=== PATIENT | male | born 1990 | race Caucasian/White ===

== ENCOUNTER 2023-07-11 18:40 | Emergency (ER) | payer OTHER, SELFPAY ==
[2023-07-11 18:45] VITALS: BP 138/89; PULSE 108; RESP 20; TEMP 37; O2SAT 97; BMI 39.3
--- NOTE | 2023-07-11 19:02 | XR_ITS ---
The [address] [address] Patient Name: RENÉ BEARD MRN: [id number] date: 1990 Sex: M Assigned Patient Location: ER Current Patient Location: ED.MAIN Accession/Order Number: [id number] Exam Date: 07/11/2023 19:15 Report Date: 07/11/2023 20:00 At the request of: JOHN BLANK Procedure: XR shoulder RT min 2V IMAGES REVIEWED: XR shoulder RT min 2V, XR lumbar spine min 4V COMPARISON: 08/05/2020 CT abdomen pelvis. CLINICAL INDICATION: pain FINDINGS/IMPRESSION: No evidence of acute osseous abnormality of the right shoulder or lumbar spine. Chronic anterior wedging of T12 and to a lesser extent L1 vertebral bodies again seen. No pars defects or spondylolisthesis. Electronically authenticated by: DEONTE CHAVARRIA Date: 07/11/2023 20:00
--- NOTE | 2023-07-11 19:02 | XR_ITS ---
The [address] [address] Patient Name: RENÉ BEARD MRN: [id number] date: 1990 Sex: M Assigned Patient Location: ER Current Patient Location: ED.MAIN Accession/Order Number: [id number] Exam Date: 07/11/2023 19:15 Report Date: 07/11/2023 20:00 At the request of: JOHN BLANK Procedure: XR lumbar spine min 4V IMAGES REVIEWED: XR shoulder RT min 2V, XR lumbar spine min 4V COMPARISON: 08/05/2020 CT abdomen pelvis. CLINICAL INDICATION: pain FINDINGS/IMPRESSION: No evidence of acute osseous abnormality of the right shoulder or lumbar spine. Chronic anterior wedging of T12 and to a lesser extent L1 vertebral bodies again seen. No pars defects or spondylolisthesis. Electronically authenticated by: DEONTE CHAVARRIA Date: 07/11/2023 20:00
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
--- NOTE | 2023-07-11 19:20 | PC.NURSE ---
Pt reports lower back and coccyx pain from mechanical fall at work this evening. Denies hitting head or LOC. Pt also reports right shoulder pain from fall, pain with ROM.
[2023-07-11 20:09] VITALS: BP 140/88; PULSE 78; RESP 16; O2SAT 98
== END 2023-07-11 20:10 | disposition home or self-care (01) ==
PROVIDERS: Emergency Provider Emergency Medicine
DX: S40.011A Contusion of right shoulder, initial encounter (principal); S39.012A Strain of muscle, fascia and tendon of lower back, initial encounter; W19.XXXA Unspecified fall, initial encounter
CPT/HCPCS: 72110; 73030; 99284

== ENCOUNTER 2023-07-28 11:53 | Outpatient (OUT) | payer SELFPAY ==
--- OUTSIDE RECORDS SUMMARY | 2023-07-28 11:57 | XMS_ITS | CCD ---
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 #### C BC, CMP #### [address] Erythrocyte distribution width (RBC) [Ratio] 13.5 % Normal 12.0-14.8 [facility] Comment on above: Order Comment: DATE CHANGE PER ELSY RN Performed By: #### C BC, CMP #### [address] Hematocrit (Bld) [Volume fraction] 46.1 % Normal 38.8-50.0 [facility] Comment on above: Order Comment: DATE CHANGE PER ELSY RN Performed By: #### C BC, CMP #### [place] [address] [place] Hemoglobin (Bld) [Mass/Vol] 15.4 g/dL Normal 13.0-17.0 [facility] Comment on above: Order Comment: DATE CHANGE PER ELSY RN Performed By: #### C BC, CMP #### [place] [address] [place] Lymphocytes (Bld) [#/Vol] 2.8 10*3/uL Normal 1.00-4.8 [facility] Comment on above: Order Comment: DATE CHANGE PER ELSY RN Performed By: #### C BC, CMP #### [facility] [address] Lymphocytes/100 WBC (Bld) 39.6 % Normal . [facility] Comment on above: Order Comment: DATE CHANGE PER ELSY RN Performed By: #### C BC, CMP #### [facility] [address] MCH (RBC) [Entitic mass] 31.1 pg Normal 27.5-35.2 [facility] Comment on above: Order Comment: DATE CHANGE PER ELSY RN Performed By: #### C BC, CMP #### [address] MCV (RBC) [Entitic vol] 92.9 fL Normal 83.5-101 [facility] Comment on above: Order Comment: DATE CHANGE PER ELSY RN Performed By: #### C BC, CMP #### [address] Mean Corpuscular HGB Conc 33.4 g/dL Normal 32.5-35.6 [facility] Comment on above: Order Comment: DATE CHANGE PER ELSY RN Performed By: #### C BC, CMP #### [address] Monocytes (Bld) [#/Vol] 0.6 10*3/uL Normal 0.0-0.8 [facility] Comment on above: Order Comment: DATE CHANGE PER ELSY RN Performed By: #### C BC, CMP #### [place] [address] [place] Monocytes/100 WBC (Bld) 8.9 % Normal . [facility] Comment on above: Order Comment: DATE CHANGE PER ELSY RN Performed By: #### C BC, CMP #### [facility] [address] [place] [address] [place] Neutrophils (Bld) [#/Vol] 3.6 10*3/uL Normal 1.8-7.7 [facility] Comment on above: Order Comment: DATE CHANGE PER ELSY RN Performed By: #### C BC, CMP #### [facility] [address] Neutrophils/100 WBC (Bld) 50.1 % Normal . [facility] Comment on above: Order Comment: DATE CHANGE PER ELSY RN Performed By: #### C BC, CMP #### [facility] [address] Nucleated RBC/100 WBC (Bld) [Ratio] 0.0 % Normal 0-0.5 [facility] Comment on above: Order Comment: DATE CHANGE PER ELSY RN Performed By: #### C BC, CMP #### [facility] [address] Platelet mean volume (Bld) [Entitic vol] 7.4 fL Normal 6.6-10.1 [facility] Comment on above: Order Comment: DATE CHANGE PER ELSY RN Performed By: #### C BC, CMP #### [facility] [address] Platelets (Bld) [#/Vol] 252 10*3/uL Normal 150-450 [facility] Comment on above: Order Comment: DATE CHANGE PER ELSY RN Performed By: #### C BC, CMP #### [facility] [address] RBC (Bld) [#/Vol] 4.96 10*6/uL Normal 3.90-5.60 [facility] Comment on above: Order Comment: DATE CHANGE PER ELSY RN Performed By: #### C BC, CMP #### [facility] [address] [place] [address] [place] WBC (Bld) [#/Vol] 7.1 10*3/uL Normal 4.5-11.0 [facility] Comment on above: Order Comment: DATE CHANGE PER ELSY RN Performed By: #### C BC, CMP #### [facility] [address] Comprehensive Metabolic Pane mike 09-18-2020 Albumin [Mass/Vol] 3.6 g/dL Normal 3.2-5.5 [facility] Comment on above: Order Comment: DATE CHANGE PER ELSY RN Performed By: #### C BC, CMP #### [facility] [address] [place] [id number] [facility] Albumin/Globulin [Mass ratio] 1.2 {ratio} Normal [facility] Comment on above: Order Comment: DATE CHANGE PER ELSY RN Performed By: #### C BC, CMP #### [facility] [address] [place] [id number] [facility] ALP [Catalytic activity/Vol] 64 U/L Normal 32-92 [facility] Comment on above: Order Comment: DATE CHANGE PER ELSY RN Performed By: #### C BC, CMP #### [facility] [address] [place] [id number] [facility] ALT [Catalytic activity/Vol] 18 U/L Normal 10-60 [facility] Comment on above: Order Comment: DATE CHANGE PER ELSY RN Performed By: #### C BC, CMP #### [facility] [address] [place] [id number] [place] AST [Catalytic activity/Vol] 16 U/L Normal 10-42 [facility] Comment on above: Order Comment: DATE CHANGE PER ELSY RN Performed By: #### C BC, CMP #### [facility] [address] [place] [id number] [place] Bilirubin [Mass/Vol] 1.0 mg/dL Normal 0.3-1.2 [facility] Comment on above: Order Comment: DATE CHANGE PER ELSY RN Performed By: #### C BC, CMP #### [facility] [address] [place] [address] [place] Calcium [Mass/Vol] 9.5 mg/dL Normal 8.2-10.2 [facility] Comment on above: Order Comment: DATE CHANGE PER ELSY RN Performed By: #### C BC, CMP #### [facility] [address] [place] [address] [place] Chloride [Moles/Vol] 100 mmol/L Normal 95-114 [facility] Comment on above: Order Comment: DATE CHANGE PER ELSY RN Performed By: #### C BC, CMP #### [facility] [address] CO2 [Moles/Vol] 26.3 mmol/L Normal 22.0-30.0 [facility] Comment on above: Order Comment: DATE CHANGE PER ELSY RN Performed By: #### C BC, CMP #### [facility] [address] Creatinine [Mass/Vol] 1.31 mg/dL High 0.64-1.27 [facility] Comment on above: Order Comment: DATE CHANGE PER ELSY RN Performed By: #### C BC, CMP #### [address] Creatinine Clr Calc Pharmacy 108.73 [facility] Comment on above: Order Comment: DATE CHANGE PER ELSY RN Result Comment: PERF ORMED BY: [place] [address] PATHOLOGIST CYLINDER PRESS OPERATOR HELPER ANNE VEGA M.D. Performed By: #### C BC, CMP #### [address] Estimated GFR ( Marialuisa > 60 [facility] Comment on above: Order Comment: DATE CHANGE PER ELSY RN Result Comment: GFR estimated reference range: According to KDOQI guidelines, <60 ml/min/1.73m2 is sufficient to diagnose a patient with chronic kidney disease. Performed By: #### C BC, CMP #### [address] Estimated GFR (Non- Am > 60 [facility] Comment on above: Order Comment: DATE CHANGE PER ELSY RN Performed By: #### C BC, CMP #### [address] Globulin (S) [Mass/Vol] 2.9 g/dL [facility] Comment on above: Order Comment: DATE CHANGE PER ELSY RN Performed By: #### C BC, CMP #### [address] Glucose [Mass/Vol] 90 mg/dL Normal 70-100 [facility] Comment on above: Order Comment: DATE CHANGE PER ELSY RN Result Comment: [place] Glucose Reference Range is dependent on time and content of last meal. Glucose of more than 200 mg/dL in a nonstressed, ambulatory subject supports the diagnosis of Diabetes Mellitus. ADA recommended reference range Performed By: #### C BC, CMP #### [facility] [address] [place] [id number] [facility] Potassium [Moles/Vol] 4.5 mmol/L Normal 3.5-5.1 [facility] Comment on above: Order Comment: DATE CHANGE PER ELSY RN Performed By: #### C BC, CMP #### [facility] [address] Protein [Mass/Vol] 6.5 g/dL Normal 6.1-7.9 [facility] Comment on above: Order Comment: DATE CHANGE PER ELSY RN Performed By: #### C BC, CMP #### [facility] [address] Sodium [Moles/Vol] 137 mmol/L Normal 136-146 [facility] Comment on above: Order Comment: DATE CHANGE PER ELSY RN Performed By: #### C BC, CMP #### [address] Urea nitrogen [Mass/Vol] 19 mg/dL Normal 9-23 [facility] Comment on above: Order Comment: DATE CHANGE PER ELSY RN Performed By: #### C BC, CMP #### [facility] [address] [place] [id number] [facility] Lipid Panelon 09-18-2020 Cholesterol [Mass/Vol] 179 mg/dL Normal 140-200 [facility] Comment on above: Order Comment: rn wi ll call when ready to be drawn change date to 09/18 per RN Result Comment: Chol less than 200 mg/dl low risk Chol 201-239 mg/dl borderline risk Chol 240 mg/dl and greater high risk Performed By: #### V [id number], TSH3 wRFLX, LIPID #### [facility] [address] Cholesterol in HDL [Mass/Vol] 30 mg/dL Normal 29-71 [facility] Comment on above: Order Comment: rn wi ll call when ready to be drawn change date to 09/18 per RN Result Comment: HDL CHOL ATP-III CLASSIFICATION Cardiovascular Risk HDL > or equal to 60 mg/dL LOW HDL < 40 mg/dL HIGH Performed By: #### V [id number], TSH3 wRFLX, LIPID #### [facility] [address] Cholesterol.total/Ch olesterol in HDL [Mass ratio] 6.0 {ratio} Normal <5.0 [facility] Comment on above: Order Comment: rn wi ll call when ready to be drawn change date to 09/18 per RN Performed By: #### V [id number], TSH3 wRFLX, LIPID #### [address] LDL Cholesterol,Calculat ed 127 mg/dL High 0-100 [facility] Comment on above: Order Comment: rn wi ll call when ready to be drawn change date to 09/18 per RN Result Comment: LDL ATP III CLASSIFICATION LDL less than 100 mg/dL Optimal LDL 100-129 mg/dL Near or above optimal LDL 130-159 mg/dL Borderline high LDL 160-189 mg/dL High LDL greater than 189 mg/dL Very high Performed By: #### V [id number], TSH3 wRFLX, LIPID #### [facility] [address] [place], [place] [id number] [place] Triglyceride w/Reflex 111 mg/dL Normal 35-149 [facility] Comment on above: Order Comment: rn wi ll call when ready to be drawn change date to 09/18 per RN Result Comment: TRIG ATP III CLASSIFICATION TRIG less than 150 mg/dL Normal TRIG 150-199 mg/dL Borderline high TRIG 200-500 mg/dL High TRIG greater than 500 mg/dL Very high Standard traceable to the Center for Disease Conrtrol and Prevention (CDC) test method. Performed By: #### V [id number], TSH3 wRFLX, LIPID #### [facility] [address] [place], [place] [id number] [facility] VLDL CHOLESTEROL 22 mg/dL Normal [facility] Comment on above: Order Comment: rn wi ll call when ready to be drawn change date to 09/18 per RN Performed By: #### V [id number], TSH3 wRFLX, LIPID #### [facility] [address] [place], [place] [id number] [facility] Thyroid Stim Hormone w/Rflxo n 09-18-2020 Thyroid Stim Hormone w/Rflx 4.35 u[iU]/mL Normal 0.45-5.33 [facility] Comment on above: Order Comment: rn wi ll call when ready to be drawn change date to 09/18 per RN Performed By: #### E JOE, CBC, CMP #### [facility] [address] [place] [address] Vitamin D 25 Hydroxy Totalon 09-18-2020 Vitamin D 25 Hydroxy Total 27.5 ng/mL Low 30-100 [facility] Comment on above: Order Comment: rn wi ll call when ready to be drawn change date to 09/18 per RN Result Comment: PAKO MIN D STATUS 25(OH)VITAMIN D RANGE (ng/mL) Deficient <20 Insufficient 20 to <30 Sufficient 30 to 100 Reference: Lisa MF,Moon NC, Melyssa SANCHEZ, et al. Evaluation,treatment, and prevention of vitamin D deficiency; an Endocrine Society clinical practice guideline. JCEM. 2010; 96(7):1911-30. PERFORMED BY: [place] [address] PATHOLOGIST CYLINDER PRESS OPERATOR HELPER ANNE VEGA M.D. Performed By: #### E JOE, CBC, CMP #### [facility] [address] [place], [place] [phone] [facility] COVID-19 Antigenon 1 COVID-19 Antigen Healthcare Worker?: N Paty Reference Paty Reference Negative SARS-CoV+SARS-CoV-2 (COVID-19) Ag [Presence] in Respiratory specimen by Rapid immunoassay Negative for SARS Antigen by [facility]I COVID19 Blank Space Paty Disclaimer Negative results, from patients with symptom Paty Disclaimer onset beyond five days, should be treated as Paty Disclaimer presumptive and confirmation with a molecular Paty Disclaimer assay, if necessary, for patient management, Paty Disclaimer may be performed. Negative results do not rule Paty Disclaimer out COVID-19 and should not be used as the sole Apty Disclaimer basis for treatment or patient management Paty Disclaimer decisions, including infection control decisions. Paty Disclaimer Negative results should be considered in the Paty Disclaimer context of a patient's recent exposures, history Paty Disclaimer and the presence of clinical signs and symptoms Paty Disclaimer consistent with COVID-19. COVID19 Blank Space Paty Disclaimer The Paty SARS Antigen [facility]I does not differentiate Paty Disclaimer between SARS-CoV and SARS-CoV-2. COVID19 Blank Space Paty Disclaimer This test was developed and its performance Paty Disclaimer characteristic determined by [employer] and Paty Disclaimer validated at [facility]. This Paty Disclaimer test has not been FDA cleared or approved. This Paty Disclaimer test has been authorized by FDA under an Emergency Use Paty Disclaimer Authorization (EUA). This test has been validated Paty Disclaimer in accordance with the FDA's Guidance Document (Policy Paty Disclaimer for Diagnostics Testing in Laboratories Certified to Paty Disclaimer Perform High Complexity Testing under CLIA prior to Paty Disclaimer Emergency Use Authorization for Coronavirus Paty Disclaimer iseas during the Public Health Emergency) Paty Disclaimer issued on October 05, 2019. This test is only authorized Paty Disclaimer for the duration of time the declaration that Paty Disclaimer circumstances exist justifying the authorization of Paty Disclaimer the emergency use of in vitro diagnostic tests for Paty Disclaimer detection of SARS-CoV-2 virus and/or diagnosis of Paty Disclaimer COVID-19 infection under section 564(b)(1) of the Paty Disclaimer Act, 21 U.S.C. 360bbb-3(b)(1), unless the Paty Disclaimer authorization is terminated or revoked sooner. PERFORMED BY: [place] [address] PATHOLOGIST CYLINDER PRESS OPERATOR HELPER ANNE VEGA M.D. [facility] Comment on above: Performed By: #### C OVID-19 PATY, SOFIANEG #### [facility] [address] [place] [address] Complete Blood Count Auto Di ffon 09-12-2020 Basophils (Bld) [#/Vol] 0.0 10*3/uL Normal 0.0-0.2 [facility] Comment on above: Result Comment: PERF ORMED BY: [place] [address] PATHOLOGIST CYLINDER PRESS OPERATOR HELPER ANNE VEGA M.D. Performed By: #### E JOE, CBC, CMP #### [facility] [address] [place] [address] Basophils/100 WBC (Bld) 0.3 % Normal . [facility] Comment on above: Performed By: #### E JOE, CBC, CMP #### [facility] [address] [place] [address] Eosinophils (Bld) [#/Vol] 0.1 10*3/uL Normal 0.0-0.45 [facility] Comment on above: Performed By: #### E JOE, CBC, CMP #### [facility] [address] [place] [address] Eosinophils/100 WBC (Bld) 1.2 % Normal . [facility] Comment on above: Performed By: #### E JOE, CBC, CMP #### [facility] [address] [place] [address] Erythrocyte distribution width (RBC) [Ratio] 13.6 % Normal 12.0-14.8 [facility] Comment on above: Performed By: #### E JOE, CBC, CMP #### [address] Hematocrit (Bld) [Volume fraction] 46.6 % Normal 38.8-50.0 [facility] Comment on above: Performed By: #### E JOE, CBC, CMP #### [address] Hemoglobin (Bld) [Mass/Vol] 16.0 g/dL Normal 13.0-17.0 [facility] Comment on above: Performed By: #### E JOE CBC, CMP #### [address] Lymphocytes (Bld) [#/Vol] 2.4 10*3/uL Normal 1.00-4.8 [facility] Comment on above: Performed By: #### E JOE CBC, CMP #### [address] Lymphocytes/100 WBC (Bld) 23.3 % Normal . [facility] Comment on above: Performed By: #### E JOE CBC, CMP #### [address] MCH (RBC) [Entitic mass] 32.4 pg Normal 27.5-35.2 [facility] Comment on above: Performed By: #### E JOE, CBC, CMP #### [address] MCV (RBC) [Entitic vol] 94.1 fL Normal 83.5-101 [facility] Comment on above: Performed By: #### E JOE, CBC, CMP #### [address] Mean Corpuscular HGB Conc 34.4 g/dL Normal 32.5-35.6 [facility] Comment on above: Performed By: #### E JOE, CBC, CMP #### [facility] [address] [place] [address] [place] Monocytes (Bld) [#/Vol] 0.6 10*3/uL Normal 0.0-0.8 [facility] Comment on above: Performed By: #### E JOE, CBC, CMP #### [facility] [address] Monocytes/100 WBC (Bld) 5.8 % Normal . [facility] Comment on above: Performed By: #### E JOE, CBC, CMP #### [address] Neutrophils (Bld) [#/Vol] 7.0 10*3/uL Normal 1.8-7.7 [facility] Comment on above: Performed By: #### E JOE, CBC, CMP #### [address] Neutrophils/100 WBC (Bld) 69.4 % Normal . [facility] Comment on above: Performed By: #### E JOE, CBC, CMP #### [place] [address] [place] Nucleated RBC/100 WBC (Bld) [Ratio] 0.2 % Normal 0-0.5 [facility] Comment on above: Performed By: #### E JOE, CBC, CMP #### [place] [address] [place] Platelet mean volume (Bld) [Entitic vol] 7.3 fL Normal 6.6-10.1 [facility] Comment on above: Performed By: #### E JOE, CBC, CMP #### [facility] [address] [place] [address] [place] Platelets (Bld) [#/Vol] 271 10*3/uL Normal 150-450 [facility] Comment on above: Performed By: #### E JOE, CBC, CMP #### [place] [address] [place] RBC (Bld) [#/Vol] 4.96 10*6/uL Normal 3.90-5.60 [facility] Comment on above: Performed By: #### E JOE CBC, CMP #### [address] WBC (Bld) [#/Vol] 10.1 10*3/uL Normal 4.5-11.0 [facility] Comment on above: Performed By: #### E JOE CBC, CMP #### [address] Comprehensive Metabolic Pane mike 09-12-2020 Albumin [Mass/Vol] 3.9 g/dL Normal 3.2-5.5 [facility] Comment on above: Performed By: #### E JOE CBC, CMP #### [address] Albumin/Globulin [Mass ratio] 1.3 {ratio} Normal [facility] Comment on above: Performed By: #### E JOE CBC, CMP #### [address] ALP [Catalytic activity/Vol] 69 U/L Normal 32-92 [facility] Comment on above: Performed By: #### E JOE CBC, CMP #### [address] ALT [Catalytic activity/Vol] 19 U/L Normal 10-60 [facility] Comment on above: Performed By: #### E JOE CBC, CMP #### [address] AST [Catalytic activity/Vol] 23 U/L Normal 10-42 [facility] Comment on above: Performed By: #### E JOE CBC, CMP #### [facility] [address] [place] [address] Bilirubin [Mass/Vol] 0.6 mg/dL Normal 0.3-1.2 [facility] Comment on above: Performed By: #### E JOE CBC, CMP #### [facility] [address] [place] [address] [place] Calcium [Mass/Vol] 9.0 mg/dL Normal 8.2-10.2 [facility] Comment on above: Performed By: #### E DEYA DIAZ, CMP #### [facility] [address] Chloride [Moles/Vol] 103 mmol/L Normal 95-114 [facility] Comment on above: Performed By: #### E DEYA DIAZ, CMP #### [facility] [address] [place] [address] CO2 [Moles/Vol] 28.8 mmol/L Normal 22.0-30.0 [facility] Comment on above: Performed By: #### E DEYA DIAZ, CMP #### [address] Creatinine [Mass/Vol] 1.12 mg/dL Normal 0.64-1.27 [facility] Comment on above: Performed By: #### E DEYA DIAZ, CMP #### [facility] [address] [place] [address] [place] Creatinine Clr Calc Pharmacy 127.51 [facility] Comment on above: Result Comment: PERF ORMED BY: [place] [address] PATHOLOGIST CYLINDER PRESS OPERATOR HELPER ANNE VEGA M.D. Performed By: #### E DEYA DIAZ, CMP #### [facility] [address] [place] [address] Estimated GFR ( Marialuisa > 60 [facility] Comment on above: Result Comment: GFR estimated reference range: According to KDOQI guidelines, <60 ml/min/1.73m2 is sufficient to diagnose a patient with chronic kidney disease. Performed By: #### E DEYA DIAZ, CMP #### [facility] [address] [place] [address] Estimated GFR (Non- Am > 60 [facility] Comment on above: Performed By: #### E JOE CBC, CMP #### [address] Globulin (S) [Mass/Vol] 3.1 g/dL Normal [facility] Comment on above: Performed By: #### E JOE CBC, CMP #### [address] Glucose [Mass/Vol] 105 mg/dL High 70-100 [facility] Comment on above: Result Comment: [facility] Glucose Reference Range is dependent on time and content of last meal. Glucose of more than 200 mg/dL in a nonstressed, ambulatory subject supports the diagnosis of Diabetes Mellitus. ADA recommended reference range Performed By: #### E JOE CBC, CMP #### [address] Potassium [Moles/Vol] 4.0 mmol/L Normal 3.5-5.1 [facility] Comment on above: Performed By: #### E JOE CBC, CMP #### [address] Protein [Mass/Vol] 7.0 g/dL Normal 6.1-7.9 [facility] Comment on above: Performed By: #### E JOE CBC, CMP #### [address] Sodium [Moles/Vol] 139 mmol/L Normal 136-146 [facility] Comment on above: Performed By: #### E JOE CBC, CMP #### [address] Urea nitrogen [Mass/Vol] 21 mg/dL Normal 9-23 [facility] Comment on above: Performed By: #### E JOE CBC, CMP #### [place] [address] [place] Drug Screen,Urineon 09-13-19 21 Amphetamine Screen,Urine Negative Normal Negative [facility] Comment on above: Performed By: #### U A, URDS #### [address] Barbiturate Screen,Urine Negative Normal Negative [facility] Comment on above: Performed By: #### U A, URDS #### [facility] [address] [place] [address] Benzodiazepines Screen,Urine Negative Normal Negative [facility] Comment on above: Performed By: #### U A, URDS #### [facility] [address] [place] [address] Cannabinoid Screen,Urine Negative Normal Negative [facility] Comment on above: Result Comment: Thes e are unconfirmed results and should not be used for legal purposes. Drug Cut-Off Concentration: AMPH 1000 ng/mL AILEEN 200 ng/mL EFRAIN 200 ng/mL COCM 300 ng/mL OP 300 ng/mL PCP 25 ng/mL THC 20 ng/mL PERFORMED BY: [place] [address] PATHOLOGIST [employer]LINDER [employer] OPERATOR HELPER ANNE VEGA M.D. Performed By: #### U A, URDS #### [facility] [address] [place] [address] [place] Cocaine Screen,Urine Negative Normal Negative [facility] Comment on above: Performed By: #### U A, URDS #### [facility] [address] [place] [address] Opiate Screen,Urine Negative Normal Negative [facility] Comment on above: Performed By: #### U A, URDS #### [facility] [address] [place] [address] Phencyclidine Screen,Urine Negative Normal Negative [facility] Comment on above: Performed By: #### U A, URDS #### [facility] [address] [place] [address] Ethyl Alcohol Profileon 09-02 Ethanol [Mass/Vol] mg/dL Normal [facility] Comment on above: Performed By: #### E JOE, CBC, CMP #### [facility] [address] [place] [address] Percent Ethanol Not performed Normal [facility] Comment on above: Result Comment: PERF ORMED BY: [place] [address] PATHOLOGIST CYLINDER PRESS OPERATOR HELPER ANNE VEGA M.D. Performed By: #### E JOE, CBC, CMP #### [facility] [address] [place] [address] Paty Ag Negativeon 09-13-19 Paty Ag Negative Negative Normal Negative [facility] Comment on above: Result Comment: This is a duplicate Paty SARS Antigen (LEI) result to be used for statistical tracking purpose only. PERFORMED BY: [place] [address] PATHOLOGIST CYLINDER PRESS OPERATOR HELPER ANNE VEGA M.D. Performed By: #### C OVID-19 PATY, SOFIANEG #### [address] Urinalysison 09-12-2020 Appearance (U) Clear Normal Clear [facility] Comment on above: Order Comment: Name Collection Type:: Clean-Voided Midstream Performed By: #### U A, URDS #### [address] Bilirubin,Urine Negative Normal Negative [facility] Comment on above: Order Comment: Name Collection Type:: Clean-Voided Midstream Performed By: #### U A, URDS #### [address] Color (U) Yellow Normal Yellow [facility] Comment on above: Order Comment: Name Collection Type:: Clean-Voided Midstream Performed By: #### U A, URDS #### [address] Glucose Ql (U) Normal Normal Normal [facility] Comment on above: Order Comment: Name Collection Type:: Clean-Voided Midstream Performed By: #### U A, URDS #### [place] [address] [place] Ketones Ql (U) Negative Normal Negative [facility] Comment on above: Order Comment: Name Collection Type:: Clean-Voided Midstream Performed By: #### U A, URDS #### [address] [place] [address] [place] Leukocyte esterase Test strip Ql (U) Negative Normal Negative [facility] Comment on above: Order Comment: Name Collection Type:: Clean-Voided Midstream Performed By: #### U A, URDS #### [place] [address] [place] Nitrite,Urine Negative Normal Negative [facility] Comment on above: Order Comment: Name Collection Type:: Clean-Voided Midstream Performed By: #### U A, URDS #### [address] Occult Blood,Urine Negative Normal Negative [facility] Comment on above: Order Comment: Name Collection Type:: Clean-Voided Midstream Result Comment: PERF ORMED BY: [place] [address] PATHOLOGIST CYLINDER PRESS OPERATOR HELPER ANNE VEGA M.D. Performed By: #### U A, URDS #### [address] pH (U) 5.5 [pH] Normal 5.0-9.0 [facility] Comment on above: Order Comment: Name Collection Type:: Clean-Voided Midstream Performed By: #### U A, URDS #### [place] [address] [place] Protein,Urine Negative Normal Negative [facility] Comment on above: Order Comment: Name Collection Type:: Clean-Voided Midstream Performed By: #### U A, URDS #### [place] [address] [place] Specificy [place],Urine 1.028 Normal 1.001-1.030 [facility] Comment on above: Order Comment: Name Collection Type:: Clean-Voided Midstream Performed By: #### U A, URDS #### [place] [address] [place] Urobilinogen,Urine Normal Normal Normal [facility] Comment on above: Order Comment: Name Collection Type:: Clean-Voided Midstream Performed By: #### U A, URDS #### [facility] [address] [id number] [facility] CT ABD/PELV W CONon 08-06-19 CT ABD/PELV W CON EXAMINATION: CT ABD/PELV W CON HISTORY: Injury of abdomen COMPARISON: None. TECHNIQUE: Multiple axial images of the abdomen and pelvis are obtained following the administration of 100 cc of Omnipaque 300 IV contrast material. Coronal and sagittal reformatted sequences are submitted for review. Dose reduction techniques were achieved by using automated exposure control and/or adjustment of mA and/or kV according to patient size and/or use of iterative reconstruction technique. FINDINGS: The lung bases are clear. The heart size is normal. The liver, gallbladder, spleen, pancreas and adrenal glands appear unremarkable. Bilateral kidneys demonstrate normal size, morphology and contrast enhancement. There is no evidence for hydronephrosis bilaterally. The stomach and duodenum appear unremarkable. Nonobstructive bowel pattern is seen. Normal-appearing appendix is seen. No significant bowel wall thickening is seen. The urinary bladder appears unremarkable. No significant free fluid or abnormal fluid collection is seen in the abdomen and pelvis. There is no evidence for pneumoperitoneum. The visualized vascular structures demonstrate normal caliber and contrast enhancement. Mild asymmetric increased subcutaneous fat stranding is seen about the right abdominal wall, suggestive of local inflammatory changes and probable ecchymotic changes. No abnormal fluid collection is seen within the visualized soft tissues. No acute displaced osseous fracture is seen. Approximately 12 mm air density is seen within the right inferior iliac bone, near the right sacroiliac joint, suggestive of a benign intraosseous pneumatocyst. IMPRESSION: No evidence for acute abnormality in the abdomen and pelvis. Mild asymmetric increased subcutaneous fat stranding is seen about the right abdominal wall, suggestive of local inflammatory changes and probable ecchymotic changes. No abnormal fluid collection is seen within the visualized soft tissues. Electronically authenticated by: ALEX DOTY Date: 2020-08-05 22:46 Normal [facility] CT CHEST W CONon 08-06-2020 CT CHEST W CON EXAMINATION: CT CHES T W CON HISTORY: Injury of abdomen COMPARISON: None. TECHNIQUE: CT examination of the chest following the administration of 100 mL of Omnipaque 300 intravenous contrast. Coronal and sagittal reformations were performed. Dose reduction techniques were achieved by using automated exposure control and/or adjustment of mA and/or kV according to patient size and/or use of iterative reconstruction technique. FINDINGS: The heart size is normal. There is no evidence for pericardial effusion. There is no evidence for pleural effusion, pneumothorax or significant pleural thickening. The lungs appear clear. No focal consolidation is seen. No discrete suspicious lung nodule is seen. No significant enlarged hilar, mediastinal or axillary adenopathy is seen. The thyroid lobes and the tracheobronchial structures appear unremarkable. The visualized chest wall appears unremarkable. No acute displaced osseous fracture is seen. IMPRESSION: No evidence for acute abnormality. Electronically authenticated by: ALEX DOTY Date: 2020-08-05 22:48 Normal [facility] CT CSPINE WO CONon 1 CT CSPINE WO CON EXAMINATION: CT CSPINE WO CON HISTORY: Traumatic injury. COMPARISON: None. TECHNIQUE: CT Cervical spine without IV contrast. Coronal and sagittal reformations were performed. Dose reduction techniques were achieved by using automated exposure control and/or adjustment of mA and/or kV according to patient size and/or use of iterative reconstruction technique. FINDINGS: No acute fracture or subluxation of the cervical spine is seen. The vertebral body heights are preserved. The vertebral elements are in anatomic alignment. The disc spaces are preserved. The prevertebral soft tissues are unremarkable. There is severe right neural foraminal narrowing at C3-C4 secondary to uncovertebral hypertrophy. Elsewhere, there does not appear to be any significant neural foraminal or spinal canal stenosis. IMPRESSION: 1. No acute fracture or subluxation of the cervical spine is seen. Electronically authenticated by: Shakir ABREU Date: 2020-08-05 22:40 Normal [facility] CBC AUTO DIFFon 08-05-2020 Basophils (Bld) [#/Vol] 0.0 103/ul Normal 0.0-0.1 [facility] Comment on above: Performed By: #### C BC ####[facility] [address] [place], [place] [address] Basophils/100 WBC (Bld) 0.2 % Normal 0.2-2.0 [facility] Comment on above: Performed By: #### C BC ####[facility] [address] [place], [place] [address]Kpwxck [place] Eosinophils (Bld) [#/Vol] 0.1 103/ul Normal 0.0-0.7 [facility] Comment on above: Performed By: #### C BC ####[facility] [address] [place] [address] [place] Eosinophils/100 WBC (Bld) 1.0 % Normal 0.9-7.0 [facility] Comment on above: Performed By: #### C BC ####[facility] [address] [place] [address] [place] Erythrocyte distribution width (RBC) [Ratio] 13.3 % Normal 11.0-15.0 [facility] Comment on above: Performed By: #### C BC ####[facility] [address] [place] [address] [place] Hematocrit (Bld) [Volume fraction] 46.4 % Normal 42.0-54.0 [facility] Comment on above: Performed By: #### C BC ####[facility] [address] [place] [address] [place] Hemoglobin (Bld) [Mass/Vol] 15.0 g/dL Normal 14.0-18.0 [facility] Comment on above: Performed By: #### C BC ####[facility] [address] [place] [address] [place] IG # 0.01 10e3/ul Normal 0.00-0.03 [facility] Comment on above: Performed By: #### C BC ####[facility] [address] [place] [address] [place] IG % 0.1 % Normal 0.0-0.5 [facility] Comment on above: Performed By: #### C BC ####[facility] [address] [place] [address] [place] Lymphocytes (Bld) [#/Vol] 3.0 103/ul Normal 1.2-3.8 [facility] Comment on above: Performed By: #### C BC ####[facility] [address] [place] [address] [place] Lymphocytes/100 WBC (Bld) 31.6 % Normal 20.5-60.0 [facility] Comment on above: Performed By: #### C BC ####[facility] [address] [place] MANUAL DIFF REQ NO Normal [facility] Comment on above: Performed By: #### C BC ####[facility] [address] [place] MCH (RBC) [Entitic mass] 30.9 pg Normal 25.9-34.0 [facility] Comment on above: Performed By: #### C BC ####[facility] [address] [place] [address] [place] MCHC (RBC) [Mass/Vol] 32.3 g/dL Normal 29.9-35.2 [facility] Comment on above: Performed By: #### C BC ####[facility] [address] [place] [address] [place] MCV (RBC) [Entitic vol] 95.5 fL Critically high 80.0-94.0 [facility] Comment on above: Result Comment: Prev iously reported as: 95.5 On 08/05/2020 22:03 By MH9 Performed By: #### C BC ####[facility] [address] [place] [address] [place] Monocytes (Bld) [#/Vol] 0.9 103/ul Critically high 0.3-0.8 [facility] Comment on above: Performed By: #### C BC ####[facility] [address] [place] [address] [place] Monocytes/100 WBC (Bld) 9.2 % Normal 1.7-12.0 [facility] Comment on above: Performed By: #### C BC ####[facility] [address] [place] [address] [place] Neutrophils (Bld) [#/Vol] 5.5 103/ul Normal 1.4-6.5 [facility] Comment on above: Performed By: #### C BC ####[facility] [address] [place] [id number] Neutrophils/100 WBC (Bld) 57.9 % Normal 43.0-75.0 [facility] Comment on above: Performed By: #### C BC ####[facility] [address] [phone] [place] Platelet mean volume (Bld) [Entitic vol] 8.7 fL Critically low 9.5-13.5 [facility] Comment on above: Performed By: #### C BC ####[facility] [address] [place], [place] [id number] [place] Platelets (Bld) [#/Vol] 268 103/ul Normal 150-450 [facility] Comment on above: Performed By: #### C BC ####[facility] [address] [place], [place] [id number] Penaen RBC (Bld) [#/Vol] 4.86 106/ul Normal 4.70-6.10 [facility] Comment on above: Performed By: #### C BC ####[facility] [address] [place], [place] [address]ken [place] WBC (Bld) [#/Vol] 9.4 103/ul Normal 4.0-11.0 [facility] Comment on above: Performed By: #### C BC ####[facility] [address] [place] [id number] Bean ER URINE PROFILEon 1 Bilirubin [Mass/Vol] Negative Normal NEGATIVE [facility] Comment on above: Performed By: #### E RUR #### [facility] [address] [place], [place] [address] [place] BLOOD Negative Normal NEGATIVE [facility] Comment on above: Performed By: #### E RUR #### [facility] [address] [place], [place] [address] [place] Clarity (U) CLEAR Normal CLEAR [facility] Comment on above: Performed By: #### E RUR #### [facility] [address] [place] [address] [place] Color (U) YELLOW Normal YELLOW [facility] Comment on above: Performed By: #### E RUR #### [facility] [address] [place], [place] [phone] [place] ERUAHD A micrscopic examination will be performed if indicated. Normal [facility] Comment on above: Performed By: #### E RUR #### [facility] [address] [place] [address] [place] Glucose [Mass/Vol] Negative Normal NEGATIVE [facility] Comment on above: Performed By: #### E RUR #### [facility] [address] [place] [address] [place] Ketones Ql (U) Negative Normal NEGATIVE [facility] Comment on above: Performed By: #### E RUR #### [facility] [address] [place] [address] [place] Nitrite Ql (U) Negative Normal NEGATIVE [facility] Comment on above: Performed By: #### E RUR #### [facility] [address] [place] [address] [place] pH (Bld) 5.5 Normal 5-9 [facility] Comment on above: Performed By: #### E RUR #### [facility] [address] [place] [address] [place] Protein (U) [Mass/Vol] Negative Normal NEGATIVE/ TRACE [facility] Comment on above: Performed By: #### E RUR #### [facility] [address] [place] [address] [place] SPEC GRAVITY >=1.030 Abnormal 1.005-<=1.025 [facility] Comment on above: Performed By: #### E RUR #### [facility] [address] [place] [address] [place] UR MICRO IND NOT INDICATED Normal [facility] Comment on above: Performed By: #### E RUR #### [facility] [address] [place], [place] [address] [place] Urobilinogen Qn (U) 0.2 EU/dl Normal 0.2 - 1.0 [facility] Comment on above: Performed By: #### E RUR #### [facility] [address] [place], [place] [address] [place] WBC (Bld) [#/Vol] Negative Normal NEGATIVE [facility] Comment on above: Performed By: #### E RUR #### [facility] [address] [place] [id number] [place] LACTATE/LACTIC ACIDon 2020 Lactate [Moles/Vol] 0.6 mmol/L Critically low 0.7-2.0 [facility] Comment on above: Performed By: #### L ACT #### [facility] [address] [place], [place] [phone] [place] LIPASEon 08-05-2020 Lipase [Catalytic activity/Vol] 172.0 U/L Normal 23.0-300.0 [facility] Comment on above: Performed By: #### H STROPN, LIPA, BMP, LIVER #### [facility] [address] [place], [place] [address] [place] LIVER PROFILEon 08-05-2020 Albumin [Mass/Vol] 3.7 g/dL Normal 3.5-5.0 [facility] Comment on above: Performed By: #### H STROPN, LIPA, BMP, LIVER ####[facility] [address] [place], [place] [address]Ptqdaf Karen Albumin/Globulin [Mass ratio] 1.0 {ratio} Normal [facility] Comment on above: Performed By: #### H STROPN, LIPA, BMP, LIVER ####[facility] [address] [place] [phone] Penaen ALP [Catalytic activity/Vol] 70 U/L Normal 38-126 [facility] Comment on above: Performed By: #### H STROPN, LIPA, BMP, LIVER ####[facility] [address] [place] [phone] [place] ALT [Catalytic activity/Vol] 36 U/L Normal 21-72 [facility] Comment on above: Performed By: #### H STROPN, LIPA, BMP, LIVER ####[facility] [address] [place], [place] [address]Vrrseg [place] AST [Catalytic activity/Vol] 32 U/L Normal 17-59 [facility] Comment on above: Performed By: #### H STROPN, LIPA, BMP, LIVER ####[facility] [address] [place] [phone] [place] BILI, CONJUGATED 0.1 mg/dL Normal 0.0-0.3 [facility] Comment on above: Performed By: #### H STROPN, LIPA, BMP, LIVER ####[facility] [address] [address]Ger[place] Bilirubin Ql (U) 0.4 mg/dL Normal 0.2-1.3 [facility] Comment on above: Performed By: #### H STROPN, LIPA, BMP, LIVER ####[facility] [address] [place] [phone] [place] Globulin (S) [Mass/Vol] 3.6 g/dL Normal [facility] Comment on above: Performed By: #### H STROPN, LIPA, BMP, LIVER ####[facility] [address] [place] [phone] [place] Protein [Mass/Vol] 7.3 g/dL Normal 6.1-8.2 [facility] Comment on above: Performed By: #### H STROPN, LIPA, BMP, LIVER ####[facility] [address] [place] [phone] [place] PROF CHEM 8 (BAS METB)on Anion gap [Moles/Vol] 14.1 mmol/L Normal [facility] Comment on above: Performed By: #### H STROPN, LIPA, BMP, LIVER #### [facility] [address] [place], [place] [address] [place] Calcium [Mass/Vol] 9.1 mg/dL Normal 8.4-10.2 [facility] Comment on above: Performed By: #### H STROPN, LIPA, BMP, LIVER #### [facility] [address] [place] [address] [place] Chloride [Moles/Vol] 104 mmol/L Normal 98-107 [facility] Comment on above: Performed By: #### H STROPN, LIPA, BMP, LIVER #### [facility] [address] [place] [address] [place] CO2 [Moles/Vol] 28.4 mmol/L Normal 22.0-30.0 [facility] Comment on above: Performed By: #### H STROPN, LIPA, BMP, LIVER #### [facility] [address] [place] [address] [place] Creatinine [Mass/Vol] 1.15 mg/dL Normal 0.66-1.25 [facility] Comment on above: Performed By: #### H STROPN, LIPA, BMP, LIVER #### [facility] [address] [place] [address] [place] EGFR-AF BRAZILIAN >60 Normal >=60 [facility] Comment on above: Performed By: #### H STROPN, LIPA, BMP, LIVER #### [facility] [address] [place] [address] [place] EGFR-NON AF BRAZILIAN >60 Normal >=60 [facility] Comment on above: Performed By: #### H STROPN, LIPA, BMP, LIVER #### [facility] [address] [place] [address] [place] Glucose [Mass/Vol] 124 mg/dL Critically high 74-106 T [facility] Comment on above: Performed By: #### H STROPN, LIPA, BMP, LIVER #### [facility] [address] [place] [address] [place] Potassium [Moles/Vol] 3.5 mmol/L Normal 3.4-5.0 [facility] Comment on above: Performed By: #### H STROPN, LIPA, BMP, LIVER #### [facility] [address] [place], [place] [address] [place] Sodium [Moles/Vol] 143 mmol/L Normal 137-145 [facility] Comment on above: Performed By: #### H STROPN, LIPA, BMP, LIVER #### [facility] [address] [place] [address] [place] Urea nitrogen [Mass/Vol] 14.0 mg/dL Normal 9.0-20.0 [facility] Comment on above: Performed By: #### H STROPN, LIPA, BMP, LIVER #### [facility] [address] [place], [place] [phone] [place] Urea nitrogen/Creatinine [Mass ratio] 12.2 mg/mg Normal [facility] Comment on above: Performed By: #### H STROPN, LIPA, BMP, LIVER #### [facility] [address] [place] [address] [place] PROTIMEon 08-05-2020 INR Coag (PPP) [Relative time] 0.94 {INR} Normal [facility] Comment on above: Performed By: #### P T, PTT #### [facility] [address] [place], [place] [phone] Jose [place] PT Coag (PPP) [Time] SEE BELOW Normal [facility] Comment on above: Result Comment: TESFAYE RED INR: 2.0 - 3.0 CONDITIONS NOT LISTED BELOW 2.5 - 3.5 FOR PROSTHETIC HEART VALVE REPLACEMENT 2.5 - 3.5 RECURRENT THROMBOSIS Performed By: #### P T, PTT #### [facility] [address] [place], [place] [phone] [place] PT Coag (PPP) [Time] 10.3 s Normal 9.0-11.6 [facility] Comment on above: Performed By: #### P T, PTT #### [facility] [address] [place], [place] [phone] [place] PTTon 08-05-2020 aPTT Coag (Bld) [Time] 26.1 s Normal 22.3-36.2 [facility] Comment on above: Performed By: #### P T, PTT #### [facility] [address] [place], [place] [address] Jose Bean TROPONIN, HIGH SENSITIVITYon 08-05-2020 HSTROP 5.5 pg/mL Normal 4.0-42.2 [facility] Comment on above: Result Comment: CUT- OFF POINTS HAVE BEEN ESTABLISHED BASED ON THE FOURTH UNIVERSAL DEFINITIONS OF MYOCARDIAL INFARCTION. THE UPPER REFERENCE LIMIT (URL) OF TROPONIN, DEFINED THE 99TH PERCENTILE OF cTnI DISTRIBUTION IN A REFERENCE POPULATION, HAS BEEN CONFIRMED THE DECISION THRESHOLD FOR ME DIAGNOSIS. Performed By: #### H STROPN, LIPA, BMP, LIVER #### [facility] [address] [place], [place] [address] Jose Bean CBC Auto Differentialon 11-0 Basophils (Bld) [#/Vol] 0.0 10*3/uL 0 - 0.2 K/uL [place] Basophils/100 WBC (Bld) 0.2 % [place] Eosinophils (Bld) [#/Vol] 0.0 10*3/uL 0 - 0.7 K/uL [place] Eosinophils/100 WBC (Bld) 0.6 % [place] Erythrocyte distribution width (RBC) [Ratio] 13.8 % 11.5 - 14.5 % [place] Hematocrit (Bld) [Volume fraction] 46.3 % 42 - 52 % [place] Hemoglobin (Bld) [Mass/Vol] 15.4 g/dL 14 - 18 g/dL [place] Lymphocytes (Bld) [#/Vol] 1.8 10*3/uL 1 - 4.8 K/uL [place] Lymphocytes/100 WBC (Bld) 21.8 % [place] MCH (RBC) [Entitic mass] 30.5 pg 27 - 31.3 pg [place] MCHC (RBC) [Mass/Vol] 33.3 % 33 - 37 % [place] MCV (RBC) [Entitic vol] 91.6 fL 80 - 100 fL [place] Monocytes (Bld) [#/Vol] 0.8 10*3/uL 0.2 - 0.8 K/uL [place] Monocytes/100 WBC (Bld) 10.1 % [place] Neutrophils Absolute 5.6 K/uL 1.4 - 6.5 K/uL [place] Neutrophils/100 WBC (Bld) 67.3 % [place] Platelets (Bld) [#/Vol] 260 10*3/uL 130 - 400 K/uL [place] RBC (Bld) [#/Vol] 5.05 10*6/uL [place] WBC (Bld) [#/Vol] 8.3 10*3/uL 4.8 - 10.8 K/uL [place] CBC With Platelet and Differ entialon 05-05-2020 Basophils (Bld) [#/Vol] 0.0 10*3/uL Normal 0.0-0.2 [facility] Comment on above: Performed By: #### C BCWD #### [facility] [address] [place] [address] Basophils/100 WBC (Bld) 0.2 % Normal [facility] Comment on above: Performed By: #### C BCWD #### [facility] [address] [place] [address] Eosinophils (Bld) [#/Vol] 0.0 10*3/uL Normal 0.0-0.7 [facility] Comment on above: Performed By: #### C BCWD #### [facility] [address] [place] [address] Eosinophils/100 WBC (Bld) 0.6 % Normal [facility] Comment on above: Performed By: #### C BCWD #### [facility] [address] [place] [address] Erythrocyte distribution width (RBC) [Ratio] 13.8 % Normal 11.5-14.5 [facility] Comment on above: Performed By: #### C BCWD #### [facility] [address] [place] [address] Hematocrit (Bld) [Volume fraction] 46.3 % Normal 42.0-52.0 [facility] Comment on above: Performed By: #### C BCWD #### [facility] [address] [place] [address] Hemoglobin (Bld) [Mass/Vol] 15.4 g/dL Normal 14.0-18.0 [facility] Comment on above: Performed By: #### C BCWD #### [facility] [address] [place] [address] Lymphocytes (Bld) [#/Vol] 1.8 10*3/uL Normal 1.0-4.8 [facility] Comment on above: Performed By: #### C BCWD #### [facility] [address] [place] [address] Lymphocytes/100 WBC (Bld) 21.8 % Normal [facility] Comment on above: Performed By: #### C BCWD #### [facility] [address] [place] [address] MCH (RBC) [Entitic mass] 30.5 pg Normal 27.0-31.3 [facility] Comment on above: Performed By: #### C BCWD #### [facility] [address] [place] [address] MCHC (RBC) [Mass/Vol] 33.3 % Normal 33.0-37.0 [facility] Comment on above: Performed By: #### C BCWD #### [facility] [address] [place] [address] MCV (RBC) [Entitic vol] 91.6 fL Normal 80.0-100.0 [facility] Comment on above: Performed By: #### C BCWD #### [facility] [address] [place] [address] Monocytes (Bld) [#/Vol] 0.8 10*3/uL Normal 0.2-0.8 [facility] Comment on above: Performed By: #### C BCWD #### [facility] [address] [place] [address] Monocytes/100 WBC (Bld) 10.1 % Normal [facility] Comment on above: Performed By: #### C BCWD #### [facility] [address] [place] [address] Neutrophils (Bld) [#/Vol] 5.6 10*3/uL Normal 1.4-6.5 [facility] Comment on above: Performed By: #### C BCWD #### [facility] [address] [place] [address] Neutrophils/100 WBC (Bld) 67.3 % Normal [facility] Comment on above: Performed By: #### C BCWD #### [facility] [address] [place] [address] Platelets (Bld) [#/Vol] 260 10*3/uL Normal 130-400 [facility] Comment on above: Performed By: #### C BCWD #### [facility] [address] [place] [address] RBC (Bld) [#/Vol] 5.05 10*6/uL Normal 4.70-6.10 [facility] Comment on above: Performed By: #### C BCWD #### [facility] [address] [place] [address] WBC (Bld) [#/Vol] 8.3 10*3/uL Normal 4.8-10.8 [facility] Comment on above: Performed By: #### C BCWD #### [facility] [address] [place] [address] Comprehensive Metabolic Pane mike 05-05-2020 Albumin [Mass/Vol] 4.3 g/dL Normal 3.5-4.6 [facility] Comment on above: Performed By: #### C MP #### [facility] [address] [place] [address] ALP [Catalytic activity/Vol] 73 U/L Normal 35-104 [facility] Comment on above: Performed By: #### C MP #### [facility] [address] [place] [address] ALT [Catalytic activity/Vol] 28 U/L Normal 0-41 [facility] Comment on above: Performed By: #### C MP #### [facility] [address] [place] [address] Anion gap [Moles/Vol] 12 mmol/L Normal 9-15 [facility] Comment on above: Performed By: #### C MP #### [facility] [address] [place] [address] AST [Catalytic activity/Vol] 37 U/L Normal 0-40 [facility] Comment on above: Performed By: #### C MP #### [facility] [address] [place] [address] Bilirubin [Mass/Vol] 0.7 mg/dL Normal 0.2-0.7 [facility] Comment on above: Performed By: #### C MP #### [facility] [address] [place] [address] Calcium [Mass/Vol] 9.3 mg/dL Normal 8.5-9.9 [facility] Comment on above: Performed By: #### C MP #### [facility] [address] [place] [address] Chloride [Moles/Vol] 98 mmol/L Normal 95-107 [facility] Comment on above: Performed By: #### C MP #### [facility] [address] [place] [address] CO2 [Moles/Vol] 26 mmol/L Normal 20-31 [facility] Comment on above: Performed By: #### C MP #### [facility] [address] [place] [address] Creatinine [Mass/Vol] 1.02 mg/dL Normal 0.70-1.20 [facility] Comment on above: Performed By: #### C MP #### [facility] [address] [place] [address] GFR/1.73 sq M predicted among blacks MDRD (S/P/Bld) [Vol rate/Area] mL/min/{1.73_m2} Normal >60 [facility] Comment on above: Result Comment: >60 mL/min/1.73m2 EGFR, calc. for ages 18 and older using the MDRD formula (not corrected for weight), is valid for stable renal function. Performed By: #### C MP #### [facility] [address] [place] [address] GFR/1.73 sq M.predicted MDRD (S/P/Bld) [Vol rate/Area] mL/min/{1.73_m2} Normal >60 [facility] Comment on above: Result Comment: >60 mL/min/1.73m2 EGFR, calc. for ages 18 and older using the MDRD formula (not corrected for weight), is valid for stable renal function. Performed By: #### C MP #### [facility] [address] [place] [address] Globulin (S) [Mass/Vol] 3.2 g/dL Normal 2.3-3.5 [facility] Comment on above: Performed By: #### C MP #### [facility] [address] [place] [address] Glucose [Mass/Vol] 100 mg/dL Critically high 70-[address] [facility] Comment on above: Performed By: #### C MP #### [facility] [address] [place] [address] Potassium [Moles/Vol] 4.3 mmol/L Normal 3.4-4.9 [facility] Comment on above: Performed By: #### C MP #### [facility] [address] [place] [address] Protein [Mass/Vol] 7.5 g/dL Normal 6.3-8.0 [facility] Comment on above: Performed By: #### C MP #### [facility] [address] [place] [address] Sodium [Moles/Vol] 136 mmol/L Normal 135-144 [facility] Comment on above: Performed By: #### C MP #### [facility] [address] [place] [address] Urea nitrogen [Mass/Vol] 12 mg/dL Normal 6-20 [facility] Comment on above: Performed By: #### C MP #### [facility] [address] [place] [address] Albumin [Mass/Vol] 4.3 g/dL 3.5 - 4.6 g/dL [place] ALP [Catalytic activity/Vol] 73 U/L 35 - 104 U/L [place] ALT [Catalytic activity/Vol] 28 U/L 0 - 41 U/L [place] Anion gap [Moles/Vol] 12 mmol/L [place] AST [Catalytic activity/Vol] 37 U/L 0 - 40 U/L [place] Bilirubin Ql (U) 0.7 mg/dL 0.2 - 0.7 mg/dL [place] Calcium [Mass/Vol] 9.3 mg/dL 8.5 - 9.9 mg/dL [place] Chloride [Moles/Vol] 98 mmol/L [place] CO2 [Moles/Vol] 26 mmol/L [place] Creatinine [Mass/Vol] 1.02 mg/dL 0.7 - 1.2 mg/dL [place] GFR >60.0 >60 [place] Comment on above: >60 mL/min/1.73m2 EG FR, calc. for ages 18 and older using the MDRD formula (not corrected for weight), is valid for stable renal function. GFR Non- >60.0 >60 [place] Comment on above: >60 mL/min/1.73m2 EG FR, calc. for ages 18 and older using the MDRD formula (not corrected for weight), is valid for stable renal function. Globulin (S) [Mass/Vol] 3.2 g/dL 2.3 - 3.5 g/dL [place] Glucose [Mass/Vol] 100 mg/dL High 70 - 99 mg/dL [place] Interpretation and review of laboratory results Abnormal [place] Potassium [Moles/Vol] 4.3 mmol/L [place] Protein [Mass/Vol] 7.5 g/dL 6.3 - 8 g/dL [place] Sodium [Moles/Vol] 136 mmol/L [place] Urea nitrogen [Mass/Vol] 12 mg/dL 6 - 20 mg/dL [place] Vital Signs Date Time Vital Sign Value Performing Clinician Fidel castro 12-14-2022 01:13-0400 Diastolic blood pressure 86 mm[Hg] Mukund MedWhat [facility] 12-14-2022 01:13-0400 Heart rate 78 /min Mukund MedWhat [facility] 12-14-2022 01:13-0400 Respiratory rate 18 /min Mukund MedWhat [facility] 12-14-2022 01:13-0400 SaO2% (BldA) [Mass fraction] 95 % MukundAnthill [facility] 12-14-2022 01:13-0400 Systolic blood pressure 122 mm[Hg] Mukund Hailey [facility] 12-14-2022 00:30-0400 Body temperature 98.6 [degF] MukundAnthill [facility] 12-14-2022 00:30-0400 Diastolic blood pressure 91 mm[Hg] MukundAnthill [facility] 12-14-2022 00:30-0400 Heart rate 80 /min Mukundcaesar Hart [facility] 12-14-2022 00:30-0400 Respiratory rate 16 /min Mukund Hart [facility] 12-14-2022 00:30-0400 SaO2% (BldA) [Mass fraction] 99 % Mukund Hart [facility] 12-14-2022 00:30-0400 Systolic blood pressure 141 mm[Hg] Mukund Hart [facility] 05-05-2020 14:34-0500 Body Temperature 97.81 [degF] [facility] [place] [facility] 05-05-2020 14:34-0500 BP Diastolic 75 mm[Hg] [facility] [place] 05-05-2020 14:34-0500 BP Systolic 146 mm[Hg] [facility] [place] 05-05-2020 14:34-0500 Pulse (Heart Rate) 66 /min [facility] 05-05-2020 14:34-0500 Pulse Oximetry 100 % [facility] [place] 05-05-2020 14:34-0500 Respiratory Rate 16 /min [facility] [place] [facility] 05-05-2020 12:40-0500 BMI (Body Mass Index) 33.51 kg/m2 Kellie Violeta [facility] 05-05-2020 12:40-0500 Body weight 115.21 kg [facility] , [place] 05-05-2020 12:40-0500 Height 185.4 cm [place], [place] Encounters Encounter Date Encounter Type Care Provider Facility Start: 12-14-2022 End: 12-14-2022 Emergency department patient visit Mukund Hart [facility] Start: 07-09-2022 End: 07-09-2022 Emergency department patient visit JOHN VELAZCO MD Facility:[facility] Start: 08-05-2020 End: 02-02-2021 Patient encounter procedure NADYA THORNTON Facility:[facility] Start: 05-05-2020 End: 05-05-2020 Emergency department patient visit KELLIE MORENO [facility] Start: 05-05-2020 End: 05-05-2020 Emergency department patient visit Kellie Moreno Work Phone: [facility] Comment on above: Dehydration (Primary Dx) Procedures Date Procedure Procedure Detail Performing Clinician Start: 05-05-2020 Blood count complete auto&auto difrntl wbc Kellie Moreno Work Phone: Start: 05-05-2020 Comprehensive metabo lic panel Kellie Moreno Work Phone: Hand Mukund Hailey Plan of Treatment Date Care Activity Detail Author Start: 03-05-2020 Influenza vaccination Flu vaccine (# 1) [place] Immunizations Immunization Date Immunization Notes Care Provider Ester blum 04-22-2012 tetanus toxoid, redu danny diphtheria toxoid, and acellular pertussis vaccine, adsorbed Mukund Hailey [facility] Comment on above: Result Comment: to l eft deltoid Payers Date Payer Category Payer Unknown [id number] 1990 Unknown [id number] 1958 Unknown [id number] Social History Date Type Detail Facility Start: 05-05-2020 Tobacco smoking stat us NHIS Heavy tobacco smoker [place] History of tobacco use Cigarette Smoker M [place], [place] Start: 05-05-2020 Cigarettes smoked current (pack per day) - Reported [place] Start: 05-05-2020 Tobacco use and exposure Current use r [place] Start: 05-05-2020 Alcohol intake Current drinke r of alcohol (finding) [place] Sex Assigned At Not on file [place] Exposure to SARS-CoV -2 (event) Not sure [place] Tobacco [facility] Comment on above: denies Tobacco smoking status No Smokin g Status Entered [facility] Sex Assigned At Male [facility] Functional Status Date Assessment Result Facility 12-14-2022 Functional Status N/A [facility] Progress note 04-17-2023 Note Date & Type Note Facility 04-17-2023 Note HNO ID: [id number] Author: Note, Interface Service: ? Author Type: ? Type: Progress Notes Filed: 04/17/2023 3:02 AM Note Text: Epic Scheduled Downtime: 04/17/2023 1:00:00 AM to 04/17/2023 1:28:00 AM [facility] Evaluation + Plan note 12-14-2022 Note Date & Type Note Facility 12-14-2022 Evaluation + Plan note Extrac jaycob from: Title:ED Note Author:Mukund Hart DO Date :12/14/22 Laceration of lower leg (S81 .819A: Laceration without foreign body, unspecified lower leg, initial encounter) [facility] Hospital Discharge instructions 12-14-2022 Note Date & Type Note Facility 12-14-2022 Hospital Discharg e instructions Patient Education 12/14/2022 01:18:33 Laceration Care, Adult Laceration Care, Adult A laceration is a cut that may go through all layers of the skin and into the tissue that is right under the skin. Some lacerations heal on their own. Others need to be closed with stitches (sutures), meir, skin adhesive strips, or skin glue. Proper care of a laceration reduces the risk for infection, helps the laceration heal better, and may prevent scarring. General tips Keep the wound clean and dry. Do not scratch or pick at the wound. Wash your hands with soap and water for at least 20 seconds before and after touching your wound or changing your bandage (dressing). If soap and water are not available, use hand funeral home director. Do not usedisinfectants or antiseptics, such as rubbing alcohol, to clean your wound unless told by your health care provider. If you were given a dressing, you should change it at least once a day, or as told by your health care provider. You should also change it if it becomes wet or dirty. How to care for your laceration If sutures or meir were used: Keep the wound completely dry for the first 24 hours, or as told by your health care provider. After that time, you may shower or bathe. Do not soak your wound in water until after the sutures or meir have been removed. Clean the wound once each day, or as told by your health care provider. To do this: ?Wash the wound with soap and water. ?Rinse the wound with water to remove all soap. ?Pat the wound dry with a clean towel. Do not rub the wound. After cleaning the wound, apply a thin layer of antibiotic ointment, other topical ointments, or a non-adherent dressing as told by your health care provider. This will help prevent infection and keep the dressing from sticking to the wound. Have the sutures or meir removed as told by your health care provider. Do not remove sutures or meir yourself. If skin adhesive strips were used: Do not get the skin adhesive strips wet. You may shower or bathe, but keep the wound dry. If the wound gets wet, pat it dry with a clean towel. Do not rub the wound. Skin adhesive strips fall off on their own. If adhesive strip edges start to loosen and curl up, you may trim the loose edges. Do not remove adhesive strips completely unless your health care provider tells you to do that. If skin glue was used: You may shower or bathe, but try to keep the wound dry. Do not soak the wound in water. After showering or bathing, pat the wound dry with a clean towel. Do not rub the wound. Do not do any activities that will make you sweat a lot until the skin glue has fallen off. Do not apply liquid, cream, or ointment medicine to the wound while the skin glue is in place. Doing this may loosen the film before the wound has healed. If a dressing is placed over the wound, do not apply tape directly over the skin glue. Doing this may cause the glue to be pulled off before the wound has healed. Do not pick at the glue. Skin glue usually remains in place for 5 10 days and then falls off the skin. Follow these instructions at home: Medicines Take [id number] and prescription medicines only as told by your health care provider. If you were prescribed an antibiotic medicine or ointment, take or apply it as told by your health care provider. Do not stop using it even if your condition improves. Managing pain and swelling If directed, put ice on the injured area. To do this: ?Put ice in a plastic bag. ?Place a towel between your skin and the bag. ?Leave the ice on for 20 minutes, 2 3 times a day. ?Remove the ice if your skin turns bright red. This is very important. If you cannot feel pain, heat, or cold, you have a greater risk of damage to the area. Raise (elevate) the injured area above the level of your heart while you are sitting or lying down for the first 24 48 hours after the laceration is repaired. General instructions Avoid any activity that could cause your wound to reopen. Check your wound every day for signs of infection. Watch for: ?More redness, swelling, or pain. ?Fluid or blood. ?Warmth. ?Pus or a bad smell. Keep all follow-up visits. This is important. Contact a health care provider if: You received a tetanus shot and you have swelling, severe pain, redness, or bleeding at the injection site. Your closed wound breaks open. You have any of these signs of infection: ?More redness, swelling, or pain around your wound. ?Fluid or blood coming from your wound. ?Warmth coming from your wound. ?Pus or a bad smell coming from your wound. ?A fever. You notice something coming out of the wound, such as wood or glass. Your pain is not controlled with medicine. You notice a change in the color of your skin near your wound. You need to change the dressing often. You develop a new rash. You have numbness around the wound. Get help right away if: You develop severe swelling around the wound. Your pain suddenly increases and is severe. You develop painful lumps near the wound or on skin anywhere else on your body. You have a red streak going away from your wound. The wound is on your hand or foot, and you cannot properly move a finger or toe. The wound is on your hand or foot, and you notice that your fingers or toes look pale or bluish. Summary A laceration is a cut that may go through all layers of the skin and into the tissue that is right under the skin. Some lacerations heal on their own. Others need to be closed with stitches (sutures), meir, skin adhesive strips, or skin glue. Proper care of a laceration reduces the risk of infection, helps the laceration heal better, and may prevent scarring. This information is not intended to replace advice given to you by your health care provider. Make sure you discuss any questions you have with your health care provider. Document Revised: 08/28/2021 Document Reviewed: 08/28/2021 [employer] Patient Education 2022 [employer]. Follow Up Care 12/14/2022 00:21:33 With:CHINA ALCANTARA Address: [facility] [address] [address]- Business (1) When:12/17/2022 [facility] Hospital course Narrative Note Date & Type Note Facility Hospital course Narrative No data available for this section [facility] Progress note Note Date & Type Note Facility Progress note No data available for this section [facility] Discharge Instructions * Attachments The following attachments cannot be sent through Care Everywhere. * Dehydration (French) documented in this encounter Assessments Diagnosis Dehydration Summary Purpose Family History No Family History Records FoundNo Family History Records FoundNo Family History Records FoundNo Family History Records FoundNo Family History Records Found Advance Directives No Advanced Directives Records FoundNo Advanced Directives Records FoundNo Advanced Directives Records FoundNo Advanced Directives Records FoundNo Advanced Directives Records Found Additional Source Comments Reason for Visit (unrecogniz ed section and content) Reason Comments Dehydration (unrecognized sect ion and content) No Status Records FoundNo Status Records FoundNo Status Records FoundNo Status Records FoundNo Status Records Found INFORMATION SOURCE (unrecogn ized section and content) DATE CREATED AUTHOR 05/05/2020 [facility] DATE CREATED AUTHOR AUTHOR'S ORGANIZ ATION 08/07/2020 [facility] DATE CREATED AUTHOR AUTHOR'S ORGANIZ ATION 08/29/2021 [facility] DATE CREATED AUTHOR AUTHOR'S ORGANIZ ATION 11/17/2022 [facility] DATE CREATED AUTHOR AUTHOR'S ORGANIZ ATION 04/18/2023 [facility] FOR RECORDS PERTAINING TO PATIENTS WHO ARE OR HAVE BEEN ENROLLED IN A CHEMICAL DEPENDENCY/SUBSTANCEABUSE PROGRAM, SOME INFORMATION MAY BE OMITTED. This clinical summary was aggregated from multiple sources. Caution should be exercised in using it in the provision of clinical care. This summary normalizes information from multiple sources, and as a consequence, information in this document may materially change the coding, format and clinical context of patient data. In addition, data may be omitted in some cases. CLINICAL DECISIONS SHOULD BE BASED ON THE PRIMARY CLINICAL RECORDS. [facility] [employer] [facility]. provides no warranty or guarantee of the accuracy or completeness of information in this document.
--- NOTE | 2023-07-28 11:58 | XR_ITS ---
The [address] [address] Patient Name: RENÉ BEARD MRN: [id number] date: 1990 Sex: M Assigned Patient Location: RAD Current Patient Location: [facility] Accession/Order Number: [id number] Exam Date: 07/28/2023 12:12 Report Date: 07/28/2023 12:30 At the request of: MICHAEL RAMSEY Procedure: XR cervical spine 5V EXAMINATION: XR thoracic spine 2V, XR cervical spine 5V HISTORY: Thoracic Back Strain , fall, neck pain COMPARISON: No relevant comparison available. FINDINGS: BONES: Straightening of normal cervical lordosis. No acute fracture or spondylolisthesis C7-T3 are poorly visualized on the lateral projection DISC SPACES: Normal. No significant disc height narrowing, subluxation, or endplate abnormality. PARASPINOUS: Negative. No paraspinous abnormality is seen. OTHER: Negative. XR/XR cervical spine 5V IMPRESSION: Loss of normal cervical lordosis Limited evaluation of the cervical thoracic junction Electronically authenticated by: KELLIE MÁRQUEZ Date: 07/28/2023 12:30
--- NOTE | 2023-07-28 11:59 | XR_ITS ---
The [address] [address] Patient Name: RENÉ BEARD MRN: [id number] date: 1990 Sex: M Assigned Patient Location: [facility] Current Patient Location: [facility] Accession/Order Number: [id number] Exam Date: 07/28/2023 12:12 Report Date: 07/28/2023 12:30 At the request of: MICHAEL RAMSEY Procedure: XR thoracic spine 2V EXAMINATION: XR thoracic spine 2V, XR cervical spine 5V HISTORY: Thoracic Back Strain , fall, neck pain COMPARISON: No relevant comparison available. FINDINGS: BONES: Straightening of normal cervical lordosis. No acute fracture or spondylolisthesis C7-T3 are poorly visualized on the lateral projection DISC SPACES: Normal. No significant disc height narrowing, subluxation, or endplate abnormality. PARASPINOUS: Negative. No paraspinous abnormality is seen. OTHER: Negative. XR/XR thoracic spine 2V IMPRESSION: Loss of normal cervical lordosis Limited evaluation of the cervical thoracic junction Electronically authenticated by: KELLIE MÁRQUEZ Date: 07/28/2023 12:30
--- NOTE | 2023-07-28 13:07 | CT_ITS ---
The [place] [id number] Patient Name: RENÉ BEARD MRN: [id number] date: 1990 Sex: M Assigned Patient Location: [facility] Current Patient Location: [facility] Accession/Order Number: [id number] Exam Date: 07/28/2023 13:15 Report Date: 07/28/2023 14:14 At the request of: MICHAEL RAMSEY Procedure: CT cervical spine wo con EXAMINATION: CT cervical spine without contrast, 07/28/2023. HISTORY: Back pain. Fall. COMPARISON: None. TECHNIQUE: Noncontrast axial CT images obtained through the cervical spine. Reconstructions obtained in the sagittal and coronal planes. Dose reduction techniques were achieved by using automated exposure control and/or adjustment of mA and/or kV according to patient size and/or use of iterative reconstruction technique. FINDINGS: Alignment normal. Odontoid process is intact. Facet joints are intact. Vertebral body heights normal. No cervical spine fracture. No degenerative changes. No significant acquired cervical spinal canal stenosis. No paraspinal soft tissue swelling. No paraspinal mass. CT/CT cervical spine wo con IMPRESSION: Normal CT of the cervical spine. No acute fracture or traumatic subluxation. Electronically authenticated by: ABRAHAM FATIMA Date: 07/28/2023 14:14
--- NOTE | 2023-07-28 13:07 | CT_ITS ---
The [address] [address] Patient Name: RENÉ BEARD MRN: [id number] date: 1990 Sex: M Assigned Patient Location: [facility] Current Patient Location: [facility] Accession/Order Number: [id number] Exam Date: 07/28/2023 13:15 Report Date: 07/28/2023 14:14 At the request of: MICHAEL RAMSEY Procedure: CT thoracic spine wo con CT THORACIC SPINE WITHOUT CONTRAST, 07/28/2023. HISTORY: Back pain. Fall. COMPARISON: None. TECHNIQUE: Noncontrast axial CT images obtained through the thoracic spine. Reconstructions obtained in the sagittal and coronal planes. Dose reduction techniques were achieved by using automated exposure control and/or adjustment of mA and/or kV according to patient size and/or use of iterative reconstruction technique. FINDINGS: Thoracic spine alignment normal. No subluxation. Vertebral body heights appear normal. No acute thoracic spine compression fracture. Facet joints are intact. Posterior elements are intact. There are no fractures. No thoracic spinal canal stenosis. No paraspinal soft tissue swelling. CT/CT thoracic spine wo con IMPRESSION: No acute thoracic spine fracture or subluxation. No thoracic spinal canal stenosis. Electronically authenticated by: ABRAHAM FATIMA Date: 07/28/2023 14:14
== END 2023-07-28 11:54 | disposition home or self-care (01) ==
PROVIDERS: Visit Provider Nurse Practitioner Family
DX: S16.1XXA Strain of muscle, fascia and tendon at neck level, initial encounter (principal); S29.012A Strain of muscle and tendon of back wall of thorax, initial encounter
CPT/HCPCS: 72050; 72070; 72125; 72128

== ENCOUNTER 2024-09-24 03:01 | Emergency (ER) | payer SELFPAY ==
[2024-09-24 03:05] VITALS: BP 127/89; PULSE 66; TEMP 36.5; O2SAT 99; BMI 40.5
--- OUTSIDE RECORDS SUMMARY | 2024-09-24 03:06 | XMS_ITS | CCD ---
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 borderline risk Chol 240 mg/dl and greater high risk Performed By: #### V [id number], TSH3 wRFLX, LIPID #### [facility] [address] [place] [id number] [facility] Cholesterol in HDL [Mass/Vol] 30 mg/dL Normal 29-71 [facility] Comment on above: Order Comment: rn wi ll call when ready to be drawn change date to 09/18 per RN Result Comment: HDL CHOL ATP-III CLASSIFICATION Cardiovascular Risk HDL > or equal to 60 mg/dL LOW HDL < 40 mg/dL HIGH Performed By: #### V [id number], TSH3 wRFLX, LIPID #### [facility] [address] Cholesterol.total/Ch olesterol in HDL [Mass ratio] 6.0 {ratio} Normal <5.0 [facility] Comment on above: Order Comment: rn wi ll call when ready to be drawn change date to 09/18 per RN Performed By: #### V [id number], TSH3 wRFLX, LIPID #### [facility] [address] [place] [id number] [facility] LDL Cholesterol,Calculat ed 127 mg/dL High 0-100 [facility] Comment on above: Order Comment: rn wi ll call when ready to be drawn change date to 09/18 per RN Result Comment: LDL ATP III CLASSIFICATION LDL less than 100 mg/dL Optimal LDL 100-129 mg/dL Near or above optimal LDL 130-159 mg/dL Borderline high LDL 160-189 mg/dL High LDL greater than 189 mg/dL Very high Performed By: #### V [id number], TSH3 wRFLX, LIPID #### [facility] [address] [place] [id number] [place] Triglyceride w/Reflex 111 mg/dL Normal 35-149 [facility] Comment on above: Order Comment: rn [...] (CDC) test method. Performed By: #### V [id number], TSH3 wRFLX, LIPID #### [facility] [address] [place] [id number] [facility] VLDL CHOLESTEROL 22 mg/dL Normal [facility] Comment on above: Order Comment: rn wi ll call when ready to be drawn change date to 09/18 per RN Performed By: #### V [id number], TSH3 wRFLX, LIPID #### [facility] [address] [place] [address] Thyroid Stim Hormone w/Rflxo n 09-18-2020 Thyroid Stim Hormone w/Rflx 4.35 u[iU]/mL Normal 0.45-5.33 [facility] Comment on above: Order Comment: rn wi ll call when ready to be drawn change date to 09/18 per RN Performed By: #### E JOE, CBC, CMP #### [facility] [address] [place] [address] Vitamin D 25 Hydroxy Totalon 09-18-2020 Vitamin D 25 Hydroxy Total 27.5 ng/mL Low 30-100 [facility] Comment on above: Order Comment: rn [...] practice guideline. JCEM. 2010; 96(7):1911-30. PERFORMED BY: [place] [address] PATHOLOGIST ACO COORDINATOR ANNE VEGA M.D. Performed By: #### E JOE, CBC, CMP #### [facility] [address] [place] [address] COVID-19 Antigenon 1 COVID-19 Antigen Healthcare Worker?: [...] should not be used as the sole Paty Disclaimer basis for treatment or patient management [...] its performance Paty Disclaimer characteristic determined by [employer] and Paty Disclaimer validated at [facility]. This Paty Disclaimer test has not [...] is terminated or revoked sooner. PERFORMED BY: [place] [address] PATHOLOGIST ACO COORDINATOR ANNE VEGA M.D. Normal [facility] Comment on above: Performed By: #### C OVID-19 PATY, SOFIANEG #### [address] Complete Blood Count Auto Di ffon 09-12-2020 Basophils (Bld) [#/Vol] 0.0 10*3/uL Normal 0.0-0.2 [facility] Comment on above: Result Comment: PERF ORMED BY: [place] [address] PATHOLOGIST ACO COORDINATOR ANNE VEGA M.D. Performed By: #### E JOE, CBC, CMP #### [address] Basophils/100 WBC (Bld) 0.3 % Normal . [facility] Comment on above: Performed By: #### E JOE, CBC, CMP #### [address] Eosinophils (Bld) [#/Vol] 0.1 10*3/uL Normal 0.0-0.45 [facility] Comment on above: Performed By: #### E JOE, CBC, CMP #### [address] Eosinophils/100 WBC (Bld) 1.2 % Normal . [facility] Comment on above: Performed By: #### E JOE, CBC, CMP #### [place] [id number] [place] Erythrocyte distribution width (RBC) [Ratio] 13.6 % Normal 12.0-14.8 [facility] Comment on above: Performed By: #### E JOE CBC, CMP #### [address] Hematocrit (Bld) [Volume fraction] 46.6 % Normal 38.8-50.0 [facility] Comment on above: Performed By: #### E JOE CBC, CMP #### [address] Hemoglobin (Bld) [Mass/Vol] 16.0 g/dL Normal 13.0-17.0 [facility] Comment on above: Performed By: #### E JOE CBC, CMP #### [address] Lymphocytes (Bld) [#/Vol] 2.4 10*3/uL Normal 1.00-4.8 [facility] Comment on above: Performed By: #### E JOE CBC, CMP #### [address] Lymphocytes/100 WBC (Bld) 23.3 % Normal . [facility] Comment on above: Performed By: #### E JOE CBC, CMP #### [address] MCH (RBC) [Entitic mass] 32.4 pg Normal 27.5-35.2 [facility] Comment on above: Performed By: #### E JOE, CBC, CMP #### [address] MCV (RBC) [Entitic vol] 94.1 fL Normal 83.5-101 [facility] Comment on above: Performed By: #### E JOE CBC, CMP #### [address] Mean Corpuscular HGB Conc 34.4 g/dL Normal 32.5-35.6 [facility] Comment on above: Performed By: #### E JOE CBC, CMP #### [facility] [address] [place] [address] [place] Monocytes (Bld) [#/Vol] 0.6 10*3/uL Normal 0.0-0.8 [facility] Comment on above: Performed By: #### E JOE, CBC, CMP #### [facility] [address] [place] [address] [place] Monocytes/100 WBC (Bld) 5.8 % Normal . [facility] Comment on above: Performed By: #### E JOE, CBC, CMP #### [facility] [address] Neutrophils (Bld) [#/Vol] 7.0 10*3/uL Normal 1.8-7.7 [facility] Comment on above: Performed By: #### E JOE, CBC, CMP #### [address] Neutrophils/100 WBC (Bld) 69.4 % Normal . [facility] Comment on above: Performed By: #### E JOE, CBC, CMP #### [place] [address] [place] Nucleated RBC/100 WBC (Bld) [Ratio] 0.2 % Normal 0-0.5 [facility] Comment on above: Performed By: #### E JOE, CBC, CMP #### [facility] [address] [place] [address] [place] Platelet mean volume (Bld) [Entitic vol] 7.3 fL Normal 6.6-10.1 [facility] Comment on above: Performed By: #### E JOE, CBC, CMP #### [facility] [address] [place] [address] [place] Platelets (Bld) [#/Vol] 271 10*3/uL Normal 150-450 [facility] Comment on above: Performed By: #### E JOE, CBC, CMP #### [facility] [address] [place] [address] [place] RBC (Bld) [#/Vol] 4.96 10*6/uL Normal 3.90-5.60 [facility] Comment on above: Performed By: #### E DEYA DIAZ, CMP #### [address] WBC (Bld) [#/Vol] 10.1 10*3/uL Normal 4.5-11.0 [facility] Comment on above: Performed By: #### E JOE CBC, CMP #### [address] Comprehensive Metabolic Pane mike 09-12-2020 Albumin [Mass/Vol] 3.9 g/dL Normal 3.2-5.5 [facility] Comment on above: Performed By: #### E DEYA DIAZ, CMP #### [address] Albumin/Globulin [Mass ratio] 1.3 {ratio} Normal [facility] Comment on above: Performed By: #### E JOE CBC, CMP #### [address] ALP [Catalytic activity/Vol] 69 U/L Normal 32-92 [facility] Comment on above: Performed By: #### E DEYA DIAZ, CMP #### [address] ALT [Catalytic activity/Vol] 19 U/L Normal 10-60 [facility] Comment on above: Performed By: #### E JOE CBC, CMP #### [address] AST [Catalytic activity/Vol] 23 U/L Normal 10-42 [facility] Comment on above: Performed By: #### E JOE CBC, CMP #### [address] Bilirubin [Mass/Vol] 0.6 mg/dL Normal 0.3-1.2 [facility] Comment on above: Performed By: #### E JOE CBC, CMP #### [address] Calcium [Mass/Vol] 9.0 mg/dL Normal 8.2-10.2 [facility] Comment on above: Performed By: #### E DEYA DIAZ, CMP #### [address] Chloride [Moles/Vol] 103 mmol/L Normal 95-114 [facility] Comment on above: Performed By: #### E DEYA DIAZ, CMP #### [address] CO2 [Moles/Vol] 28.8 mmol/L Normal 22.0-30.[address] [facility] Comment on above: Performed By: #### E DEYA DIAZ, CMP #### [address] Creatinine [Mass/Vol] 1.12 mg/dL Normal 0.64-1.27 [facility] Comment on above: Performed By: #### E DEYA DIAZ, CMP #### [address] Creatinine Clr Calc Pharmacy 127.51 [facility] Comment on above: Result Comment: PERF ORMED BY: [place] [address] PATHOLOGIST ACO COORDINATOR ANNE VEGA M.D. Performed By: #### E DEYA DIAZ, CMP #### [address] Estimated GFR ( Marialuisa > 60 [facility] Comment on above: Result Comment: GFR estimated reference range: According to KDOQI guidelines, <60 ml/min/1.73m2 is sufficient to diagnose a patient with chronic kidney disease. Performed By: #### E DEYA DIAZ, CMP #### [address] Estimated GFR (Non- Am > 60 [facility] Comment on above: Performed By: #### E DEYA DIAZ, CMP #### [address] Globulin (S) [Mass/Vol] 3.1 g/dL Normal [facility] Comment on above: Performed By: #### E JOE CBC, CMP #### [facility] [address] Glucose [Mass/Vol] 105 mg/dL High 70-100 [facility] Comment on above: Result Comment: [place] Glucose Reference Range is dependent on time and content of last meal. Glucose of more than 200 mg/dL in a nonstressed, ambulatory subject supports the diagnosis of Diabetes Mellitus. ADA recommended reference range Performed By: #### E JOE, CBC, CMP #### [address] Potassium [Moles/Vol] 4.0 mmol/L Normal 3.5-5.1 [facility] Comment on above: Performed By: #### E JOE CBC, CMP #### [address] Protein [Mass/Vol] 7.0 g/dL Normal 6.1-7.9 [facility] Comment on above: Performed By: #### E JOE CBC, CMP #### [place] [address] [place] Sodium [Moles/Vol] 139 mmol/L Normal 136-146 [facility] Comment on above: Performed By: #### E JOE, CBC, CMP #### [facility] [address] [place] [address] [place] Urea nitrogen [Mass/Vol] 21 mg/dL Normal 9-23 [facility] Comment on above: Performed By: #### E JOE, CBC, CMP #### [facility] [address] [place] [address] [place] Drug Screen,Urineon 09-13-19 21 Amphetamine Screen,Urine Negative Normal Negative [facility] Comment on above: Performed By: #### U A, URDS #### [facility] [address] [place] [address] [place] Barbiturate Screen,Urine Negative Normal Negative [facility] Comment on above: Performed By: #### U A, URDS #### [facility] [address] [place] [address] Benzodiazepines Screen,Urine Negative Normal Negative [facility] Comment on above: Performed By: #### U A, URDS #### [address] Cannabinoid Screen,Urine Negative Normal Negative [facility] Comment on above: Result Comment: Thes e are unconfirmed results and should not be used for legal purposes. Drug Cut-Off Concentration: AMPH 1000 ng/mL AILEEN 200 ng/mL EFRAIN 200 ng/mL COCM 300 ng/mL OP 300 ng/mL PCP 25 ng/mL THC 20 ng/mL PERFORMED BY: [place] [address] PATHOLOGIST ACO COORDINATOR ANNE VEGA M.D. Performed By: #### U A, URDS #### [address] Cocaine Screen,Urine Negative Normal Negative [facility] Comment on above: Performed By: #### U A, URDS #### [address] Opiate Screen,Urine Negative Normal Negative [facility] Comment on above: Performed By: #### U A, URDS #### [address] Phencyclidine Screen,Urine Negative Normal Negative [facility] Comment on above: Performed By: #### U A, URDS #### [facility] [address] [place] [address] Ethyl Alcohol Profileon 09-02 Ethanol [Mass/Vol] mg/dL Normal [facility] Comment on above: Performed By: #### E JOE, CBC, CMP #### [facility] [address] [place] [address] Percent Ethanol Not performed Normal [facility] Comment on above: Result Comment: PERF ORMED BY: [place] [address] PATHOLOGIST ACO COORDINATOR ANNE VEGA M.D. Performed By: #### E JOE, CBC, CMP #### [facility] [address] [place] [address] Paty Ag Negativeon 09-13-19 21 Paty Ag Negative Negative Normal Negative [facility] Comment on above: Result Comment: This is a duplicate Paty SARS Antigen (LEI) result to be used for statistical tracking purpose only. PERFORMED BY: [place] [address] PATHOLOGIST ACO COORDINATOR ANNE VEGA M.D. Performed By: #### C OVID-19 PATY, SOFIANEG #### [address] Urinalysison 09-12-2020 Appearance (U) Clear Normal Clear [facility] Comment on above: Order Comment: Name Collection Type:: Clean-Voided Midstream Performed By: #### U A, URDS #### [address] Bilirubin,Urine Negative Normal Negative [facility] Comment on above: Order Comment: Name Collection Type:: Clean-Voided Midstream Performed By: #### U A, URDS #### [address] Color (U) Yellow Normal Yellow [facility] Comment on above: Order Comment: Name Collection Type:: Clean-Voided Midstream Performed By: #### U A, URDS #### [address] Glucose Ql (U) Normal Normal Normal [facility] Comment on above: Order Comment: Name Collection Type:: Clean-Voided Midstream Performed By: #### U A, URDS #### [address] Ketones Ql (U) Negative Normal Negative [facility] Comment on above: Order Comment: Name Collection Type:: Clean-Voided Midstream Performed By: #### U A, URDS #### [address] Leukocyte esterase Test strip Ql (U) Negative Normal Negative [facility] Comment on above: Order Comment: Name Collection Type:: Clean-Voided Midstream Performed By: #### U A, URDS #### [facility] [address] [place] [address] Nitrite,Urine Negative Normal Negative [facility] Comment on above: Order Comment: Name Collection Type:: Clean-Voided Midstream Performed By: #### U A, URDS #### [address] Occult Blood,Urine Negative Normal Negative [facility] Comment on above: Order Comment: Name Collection Type:: Clean-Voided Midstream Result Comment: PERF ORMED BY: [place] [address] PATHOLOGIST ACO COORDINATOR ANNE VEGA M.D. Performed By: #### U A, URDS #### [address] pH (U) 5.5 [pH] Normal 5.0-9.0 [facility] Comment on above: Order Comment: Name Collection Type:: Clean-Voided Midstream Performed By: #### U A, URDS #### [address] Protein,Urine Negative Normal Negative [facility] Comment on above: Order Comment: Name Collection Type:: Clean-Voided Midstream Performed By: #### U A, URDS #### [facility] [address] [place] [address] Specificy [place],Urine 1.028 Normal 1.001-1.030 [facility] Comment on above: Order Comment: Name Collection Type:: Clean-Voided Midstream Performed By: #### U A, URDS #### [address] Urobilinogen,Urine Normal Normal Normal [facility] Comment on above: Order Comment: Name Collection Type:: Clean-Voided Midstream Performed By: #### U A, URDS #### [address] ABD/PELV W CONon 08-06-19 CT ABD/PELV [...] by: ALEX DOTY Date: 2020-08-05 22:[address] [facility] [address] CHEST W CONon 08-06-2020 CT [...] by: ALEX DOTY Date: 2020-08-05 22:[address] [facility] [address] CSPINE WO CONon CT CSPINE WO CON EXAMINATION: CT CSPINE [...] Shakir ABREU Date: 2020-08-05 22:40 Normal [facility] CBC AUTO DIFFon 08-05-2020 Basophils (Bld) [#/Vol] 0.0 103/ul Normal 0.0-0.1 [facility] Comment on above: Performed By: #### C BC ####[facility] [address] [place], [place] [address]Ekpsyv [place] Basophils/100 WBC (Bld) 0.2 % Normal 0.2-2.0 [facility] Comment on above: Performed By: #### C BC ####[facility] [address] [place], [place] [address]Ajwbvl [place] Eosinophils (Bld) [#/Vol] 0.1 103/ul Normal 0.0-0.7 [facility] Comment on above: Performed By: #### C BC ####[facility] [address] [place] Eosinophils/100 WBC (Bld) 1.0 % Normal 0.9-7.0 [facility] Comment on above: Performed By: #### C BC ####[facility] [address] [place] [address] [place] Erythrocyte distribution width (RBC) [Ratio] 13.3 % Normal 11.0-15.0 [facility] Comment on above: Performed By: #### C BC ####[facility] [address] [place] [address] [place] Hematocrit (Bld) [Volume fraction] 46.4 % Normal 42.0-54.0 [facility] Comment on above: Performed By: #### C BC ####[facility] [address] [place] [address] [place] Hemoglobin (Bld) [Mass/Vol] 15.0 g/dL Normal 14.0-18.0 [facility] Comment on above: Performed By: #### C BC ####[facility] [address] [place] [address] [place] IG # 0.01 10e3/ul Normal 0.00-0.03 [facility] Comment on above: Performed By: #### C BC ####[facility] [address] [place] [address] [place] IG % 0.1 % Normal 0.0-0.5 [facility] Comment on above: Performed By: #### C BC ####[facility] [address] [place] [address] [place] Lymphocytes (Bld) [#/Vol] 3.0 103/ul Normal 1.2-3.8 [facility] Comment on above: Performed By: #### C BC ####[facility] [address] [place] [address] [place] Lymphocytes/100 WBC (Bld) 31.6 % Normal 20.5-60.0 [facility] Comment on above: Performed By: #### C BC ####[facility] Isn[address]nz[address] [place] MANUAL DIFF REQ NO Normal [facility] Comment on above: Performed By: #### C BC ####[facility] [address] [place] [id number] [place] MCH (RBC) [Entitic mass] 30.9 pg Normal 25.9-34.0 [facility] Comment on above: Performed By: #### C BC ####[facility] I[address] [place] MCHC (RBC) [Mass/Vol] 32.3 g/dL Normal 29.9-35.2 [facility] Comment on above: Performed By: #### C BC ####[facility] [address] [place] [address] [place] MCV (RBC) [Entitic vol] 95.5 fL Critically high 80.0-94.0 [facility] Comment on above: Result Comment: Prev iously reported as: 95.5 On 08/05/2020 22:03 By MH9 Performed By: #### C BC ####[facility] [address] [place] [address] [place] Monocytes (Bld) [#/Vol] 0.9 103/ul Critically high 0.3-0.8 [facility] Comment on above: Performed By: #### C BC ####[facility] Q[address]ua[address]132 [address] [place] Monocytes/100 WBC (Bld) 9.2 % Normal 1.7-12.0 [facility] Comment on above: Performed By: #### C BC ####[facility] [address] [place] [address] [place] Neutrophils (Bld) [#/Vol] 5.5 103/ul Normal 1.4-6.5 [facility] Comment on above: Performed By: #### C BC ####[facility] [address] [place], [place] [address] [place] Neutrophils/100 WBC (Bld) 57.9 % Normal 43.0-75.0 [facility] Comment on above: Performed By: #### C BC ####[facility] [address] [place], [place] [address]Iyouct Karen Platelet mean volume (Bld) [Entitic vol] 8.7 fL Critically low 9.5-13.5 [facility] Comment on above: Performed By: #### C BC ####[facility] [address] [place], [place] [address]Gsdqsg [place] Platelets (Bld) [#/Vol] 268 103/ul Normal 150-450 [facility] Comment on above: Performed By: #### C BC ####[facility] [address] [place] [address]Ljwtye [place] RBC (Bld) [#/Vol] 4.86 106/ul Normal 4.70-6.10 [facility] Comment on above: Performed By: #### C BC ####[facility] [address] [place], [place] [address]Kcmdva [place] WBC (Bld) [#/Vol] 9.4 103/ul Normal 4.0-11.0 [facility] Comment on above: Performed By: #### C BC ####[facility] [address] [place], [place] [address]Djqsom [place] ER URINE PROFILEon 1 Bilirubin [Mass/Vol] Negative Normal NEGATIVE [facility] Comment on above: Performed By: #### E RUR #### [facility] [address] [place] [address] Jose [place] BLOOD Negative Normal NEGATIVE [facility] Comment on above: Performed By: #### E RUR #### [facility] [address] [place] [address] Jose [place] Clarity (U) CLEAR Normal CLEAR [facility] Comment on above: Performed By: #### E RUR #### [facility] [address] [place] [address] Jose [place] Color (U) YELLOW Normal YELLOW [facility] Comment on above: Performed By: #### E RUR #### [facility] [address] [place] [address] Jose Geneva ERUAHD A micrscopic examination will be performed if indicated. Normal [facility] Comment on above: Performed By: #### E RUR #### [facility] [address] [place] [address] Jose Geneva Glucose [Mass/Vol] Negative Normal NEGATIVE [facility] Comment on above: Performed By: #### E RUR #### [facility] [address] [place] [address] Jose Geneva Ketones Ql (U) Negative Normal NEGATIVE [facility] Comment on above: Performed By: #### E RUR #### [facility] [address] [place] [address] Jose Geneva Nitrite Ql (U) Negative Normal NEGATIVE [facility] Comment on above: Performed By: #### E RUR #### [facility] [address] [place] [address] Jose Geneva pH (Bld) 5.5 Normal 5-9 [facility] Comment on above: Performed By: #### E RUR #### [facility] [address] [place] [address] Jose Geneva Protein (U) [Mass/Vol] Negative Normal NEGATIVE/ TRACE [facility] Comment on above: Performed By: #### E RUR #### [facility] [address] [place] [address] Jose Geneva SPEC GRAVITY >=1.030 Abnormal 1.005-<=1.025 [facility] Comment on above: Performed By: #### E RUR #### [facility] [address] [place] [address] Jose Geneva UR MICRO IND NOT INDICATED Normal [facility] Comment on above: Performed By: #### E RUR #### [facility] [address] [place] [address] Jose Geneva Urobilinogen Qn (U) 0.2 EU/dl Normal 0.2 - 1.0 [facility] Comment on above: Performed By: #### E RUR #### [facility] [address] [place], [place] [address] Jose Bean WBC (Bld) [#/Vol] Negative Normal NEGATIVE [facility] Comment on above: Performed By: #### E RUR #### [facility] [address] [place], [place] [address] Jose Bean LACTATE/LACTIC ACIDon 2020 Lactate [Moles/Vol] 0.6 mmol/L Critically low 0.7-2.0 [facility] Comment on above: Performed By: #### L ACT #### [facility] [address] [place] [id number] Jose Bean LIPASEon 08-05-2020 Lipase [Catalytic activity/Vol] 172.0 U/L Normal 23.0-300.0 [facility] Comment on above: Performed By: #### H STROPN, LIPA, BMP, LIVER #### [facility] [address] [place], [place] [address] Jose Bean LIVER PROFILEon 08-05-2020 Albumin [Mass/Vol] 3.7 g/dL Normal 3.5-5.0 [facility] Comment on above: Performed By: #### H STROPN, LIPA, BMP, LIVER ####[facility] [address] [place], [place] [address]Lcrgdb Karen Albumin/Globulin [Mass ratio] 1.0 {ratio} Normal [facility] Comment on above: Performed By: #### H STROPN, LIPA, BMP, LIVER ####[facility] [address] [place], [place] [address]Kicnyl Karen ALP [Catalytic activity/Vol] 70 U/L Normal 38-126 [facility] Comment on above: Performed By: #### H STROPN, LIPA, BMP, LIVER ####[facility] [address] [place], [place] [address]Aswkgn Karen ALT [Catalytic activity/Vol] 36 U/L Normal 21-72 [facility] Comment on above: Performed By: #### H STROPN, LIPA, BMP, LIVER ####[facility] [address] [place] [id number] Geneva AST [Catalytic activity/Vol] 32 U/L Normal 17-59 [facility] Comment on above: Performed By: #### H STROPN, LIPA, BMP, LIVER ####[facility] [address] [place] [address]Gerken Geneva BILI, CONJUGATED 0.1 mg/dL Normal 0.0-0.3 [facility] Comment on above: Performed By: #### H STROPN, LIPA, BMP, LIVER ####[facility] [address] [place] [address]Gerken Geneva Bilirubin Ql (U) 0.4 mg/dL Normal 0.2-1.3 [facility] Comment on above: Performed By: #### H STROPN, LIPA, BMP, LIVER ####[facility] [address] [place] [phone] Geneva Globulin (S) [Mass/Vol] 3.6 g/dL Normal [facility] Comment on above: Performed By: #### H STROPN, LIPA, BMP, LIVER ####[facility] [address] [place] [id number] Geneva Protein [Mass/Vol] 7.3 g/dL Normal 6.1-8.2 [facility] Comment on above: Performed By: #### H STROPN, LIPA, BMP, LIVER ####[facility] [address] [place] [id number] Geneva PROF CHEM 8 (BAS METB)on Anion gap [Moles/Vol] 14.1 mmol/L Normal [facility] Comment on above: Performed By: #### H STROPN, LIPA, BMP, LIVER #### [facility] [address] [place], [place] [address] Jose Geneva Calcium [Mass/Vol] 9.1 mg/dL Normal 8.4-10.2 [facility] Comment on above: Performed By: #### H STROPN, LIPA, BMP, LIVER #### [facility] [address] [place] [address] Jose Geneva Chloride [Moles/Vol] 104 mmol/L Normal 98-107 [facility] Comment on above: Performed By: #### H STROPN, LIPA, BMP, LIVER #### [facility] [address] [place] [address] Jose Geneva CO2 [Moles/Vol] 28.4 mmol/L Normal 22.0-30.0 [facility] Comment on above: Performed By: #### H STROPN, LIPA, BMP, LIVER #### [facility] [address] [place] [address] Jose Geneva Creatinine [Mass/Vol] 1.15 mg/dL Normal 0.66-1.25 [facility] Comment on above: Performed By: #### H STROPN, LIPA, BMP, LIVER #### [facility] [address] [place] [address] Jose Geneva EGFR-AF MAURITANIAN >60 Normal >=60 [facility] Comment on above: Performed By: #### H STROPN, LIPA, BMP, LIVER #### [facility] [address] [place] [address] Jose Geneva EGFR-NON AF MAURITANIAN >60 Normal >=60 [facility] Comment on above: Performed By: #### H STROPN, LIPA, BMP, LIVER #### [facility] [address] [place] [address] Jose Geneva Glucose [Mass/Vol] 124 mg/dL Critically high 74-106 T [facility] Comment on above: Performed By: #### H STROPN, LIPA, BMP, LIVER #### [facility] [address] [place] [address] Jose Geneva Potassium [Moles/Vol] 3.5 mmol/L Normal 3.4-5.0 [facility] Comment on above: Performed By: #### H STROPN, LIPA, BMP, LIVER #### [facility] [address] [place], [place] [id number] Jose Geneva Sodium [Moles/Vol] 143 mmol/L Normal 137-145 [facility] Comment on above: Performed By: #### H KEVIN PIERSON BMP, LIVER #### [facility] [address] [place] [address] Jose Geneva Urea nitrogen [Mass/Vol] 14.0 mg/dL Normal 9.0-20.0 [facility] Comment on above: Performed By: #### H KEVIN PIERSON BMP, LIVER #### [facility] [address] [place] [address] Jose Geneva Urea nitrogen/Creatinine [Mass ratio] 12.2 mg/mg Normal [facility] Comment on above: Performed By: #### H KEVIN PIERSON BMP, LIVER #### [facility] [address] [place] [address] Josehai Penaen PROTIMEon 08-05-2020 INR Coag (PPP) [Relative time] 0.94 {INR} Normal [facility] Comment on above: Performed By: #### P T, PTT #### [facility] [address] [place] [address] Jose Geneva PT Coag (PPP) [Time] SEE BELOW Normal [facility] Comment on above: Result Comment: TESFAYE RED INR: 2.0 - 3.0 CONDITIONS NOT LISTED BELOW 2.5 - 3.5 FOR PROSTHETIC HEART VALVE REPLACEMENT 2.5 - 3.5 RECURRENT THROMBOSIS Performed By: #### P T, PTT #### [facility] [address] [place] [address] Jose Geneva PT Coag (PPP) [Time] 10.3 s Normal 9.0-11.6 [facility] Comment on above: Performed By: #### P T, PTT #### [facility] [address] [place] [address] Jose Geneva PTTon 08-05-2020 aPTT Coag (Bld) [Time] 26.1 s Normal 22.3-36.2 [facility] Comment on above: Performed By: #### P T, PTT #### [facility] [address] [place], [place] [address] Jose Bean TROPONIN, HIGH SENSITIVITYon 08-05-2020 HSTROP 5.5 pg/mL Normal 4.0-42.2 [facility] Comment on above: Result Comment: CUT- OFF POINTS HAVE BEEN ESTABLISHED BASED ON THE FOURTH UNIVERSAL DEFINITIONS OF MYOCARDIAL INFARCTION. THE UPPER REFERENCE LIMIT (URL) OF TROPONIN, DEFINED THE 99TH PERCENTILE OF cTnI DISTRIBUTION IN A REFERENCE POPULATION, HAS BEEN CONFIRMED THE DECISION THRESHOLD FOR SD DIAGNOSIS. Performed By: #### H STROPN, LIPA, BMP, LIVER #### [facility] [address] [place], [place] [address] Jose Bean CBC Auto Differentialon 11-0 -2019 Basophils (Bld) [#/Vol] 0.0 10*3/uL 0 - 0.2 K/uL [place] Basophils/100 WBC (Bld) 0.2 % [place] Eosinophils (Bld) [#/Vol] 0.0 10*3/uL 0 - 0.7 K/uL [place] Eosinophils/100 WBC (Bld) 0.6 % [place] Erythrocyte distribution width (RBC) [Ratio] 13.8 % 11.5 - 14.5 % [place] Hematocrit (Bld) [Volume fraction] 46.3 % 42 - 52 % [place] Hemoglobin (Bld) [Mass/Vol] 15.4 g/dL 14 - 18 g/dL [place] Lymphocytes (Bld) [#/Vol] 1.8 10*3/uL 1 - 4.8 K/uL [place] Lymphocytes/100 WBC (Bld) 21.8 % [place] MCH (RBC) [Entitic mass] 30.5 pg 27 - 31.3 pg [place] MCHC (RBC) [Mass/Vol] 33.3 % 33 - 37 % [place] MCV (RBC) [Entitic vol] 91.6 fL 80 - 100 fL [place] Monocytes (Bld) [#/Vol] 0.8 10*3/uL 0.2 - 0.8 K/uL [place] Monocytes/100 WBC (Bld) 10.1 % [place] Neutrophils Absolute 5.6 K/uL 1.4 - 6.5 K/uL [place] Neutrophils/100 WBC (Bld) 67.3 % [place] Platelets (Bld) [#/Vol] 260 10*3/uL 130 - 400 K/uL [place] RBC (Bld) [#/Vol] 5.05 10*6/uL [place] WBC (Bld) [#/Vol] 8.3 10*3/uL 4.8 - 10.8 K/uL [place] CBC With Platelet and Differ entialon 05-05-2020 Basophils (Bld) [#/Vol] 0.0 10*3/uL Normal 0.0-0.2 [facility] Comment on above: Performed By: #### C BCWD #### [facility] [address] [place] [address] Basophils/100 WBC (Bld) 0.2 % Normal [facility] Comment on above: Performed By: #### C BCWD #### [facility] [address] [place] [address] Eosinophils (Bld) [#/Vol] 0.0 10*3/uL Normal 0.0-0.7 [facility] Comment on above: Performed By: #### C BCWD #### [facility] [address] [place] [address] Eosinophils/100 WBC (Bld) 0.6 % Normal [facility] Comment on above: Performed By: #### C BCWD #### [facility] [address] [place] [address] Erythrocyte distribution width (RBC) [Ratio] 13.8 % Normal 11.5-14.5 [facility] Comment on above: Performed By: #### C BCWD #### [facility] [address] [place] [address] Hematocrit (Bld) [Volume fraction] 46.3 % Normal 42.0-52.0 [facility] Comment on above: Performed By: #### C BCWD #### [facility] [address] [place] [address] Hemoglobin (Bld) [Mass/Vol] 15.4 g/dL Normal 14.0-18.0 [facility] Comment on above: Performed By: #### C BCWD #### [facility] [address] [place] [address] Lymphocytes (Bld) [#/Vol] 1.8 10*3/uL Normal 1.0-4.8 [facility] Comment on above: Performed By: #### C BCWD #### [facility] [address] [place] [address] Lymphocytes/100 WBC (Bld) 21.8 % Normal [facility] Comment on above: Performed By: #### C BCWD #### [facility] [address] [place] [address] MCH (RBC) [Entitic mass] 30.5 pg Normal 27.0-31.3 [facility] Comment on above: Performed By: #### C BCWD #### [facility] [address] [place] [address] MCHC (RBC) [Mass/Vol] 33.3 % Normal 33.0-37.0 [facility] Comment on above: Performed By: #### C BCWD #### [facility] [address] [place] [address] MCV (RBC) [Entitic vol] 91.6 fL Normal 80.0-100.0 [facility] Comment on above: Performed By: #### C BCWD #### [facility] [address] [place] [address] Monocytes (Bld) [#/Vol] 0.8 10*3/uL Normal 0.2-0.8 [facility] Comment on above: Performed By: #### C BCWD #### [facility] [address] [place] [address] Monocytes/100 WBC (Bld) 10.1 % Normal [facility] Comment on above: Performed By: #### C BCWD #### [facility] [address] [place] [address] Neutrophils (Bld) [#/Vol] 5.6 10*3/uL Normal 1.4-6.5 [facility] Comment on above: Performed By: #### C BCWD #### [facility] [address] [place] [address] Neutrophils/100 WBC (Bld) 67.3 % Normal [facility] Comment on above: Performed By: #### C BCWD #### [facility] [address] [place] [address] Platelets (Bld) [#/Vol] 260 10*3/uL Normal 130-400 [facility] Comment on above: Performed By: #### C BCWD #### [facility] [address] [place] [address] RBC (Bld) [#/Vol] 5.05 10*6/uL Normal 4.70-6.10 [facility] Comment on above: Performed By: #### C BCWD #### [facility] [address] [place] [address] WBC (Bld) [#/Vol] 8.3 10*3/uL Normal 4.8-10.8 [facility] Comment on above: Performed By: #### C BCWD #### [facility] [address] [place] [address] Comprehensive Metabolic Pane mike 05-05-2020 Albumin [Mass/Vol] 4.3 g/dL Normal 3.5-4.6 [facility] Comment on above: Performed By: #### C MP #### [facility] [address] [place] [address] ALP [Catalytic activity/Vol] 73 U/L Normal 35-104 [facility] Comment on above: Performed By: #### C MP #### [facility] [address] [place] [address] ALT [Catalytic activity/Vol] 28 U/L Normal 0-41 [facility] Comment on above: Performed By: #### C MP #### [facility] [address] [place] [address] Anion gap [Moles/Vol] 12 mmol/L Normal 9-15 [facility] Comment on above: Performed By: #### C MP #### [facility] [address] [place] [address] AST [Catalytic activity/Vol] 37 U/L Normal 0-40 [facility] Comment on above: Performed By: #### C MP #### [facility] [address] [place] [address] Bilirubin [Mass/Vol] 0.7 mg/dL Normal 0.2-0.7 [facility] Comment on above: Performed By: #### C MP #### [facility] [address] [place] [address] Calcium [Mass/Vol] 9.3 mg/dL Normal 8.5-9.9 [facility] Comment on above: Performed By: #### C MP #### [facility] [address] [place] [address] Chloride [Moles/Vol] 98 mmol/L Normal 95-107 [facility] Comment on above: Performed By: #### C MP #### [facility] [address] [place] [address] CO2 [Moles/Vol] 26 mmol/L Normal 20-31 [facility] Comment on above: Performed By: #### C MP #### [facility] [address] [place] [address] Creatinine [Mass/Vol] 1.02 mg/dL Normal 0.70-1.20 [facility] Comment on above: Performed By: #### C MP #### [facility] [address] [place] [address] GFR/1.73 sq M predicted among blacks MDRD (S/P/Bld) [Vol rate/Area] mL/min/{1.73_m2} Normal >60 [facility] Comment on above: Result Comment: >60 mL/min/1.73m2 EGFR, calc. for ages 18 and older using the MDRD formula (not corrected for weight), is valid for stable renal function. Performed By: #### C MP #### [facility] [address] [place] [address] GFR/1.73 sq M.predicted MDRD (S/P/Bld) [Vol rate/Area] mL/min/{1.73_m2} Normal >60 [facility] Comment on above: Result Comment: >60 mL/min/1.73m2 EGFR, calc. for ages 18 and older using the MDRD formula (not corrected for weight), is valid for stable renal function. Performed By: #### C MP #### [facility] [address] [place] [address] Globulin (S) [Mass/Vol] 3.2 g/dL Normal 2.3-3.5 [facility] Comment on above: Performed By: #### C MP #### [facility] [address] [place] [address] Glucose [Mass/Vol] 100 mg/dL Critically high 70-99 [facility] Comment on above: Performed By: #### C MP #### [facility] [address] [place] [address] Potassium [Moles/Vol] 4.3 mmol/L Normal 3.4-4.9 [facility] Comment on above: Performed By: #### C MP #### [facility] [address] [place] [address] Protein [Mass/Vol] 7.5 g/dL Normal 6.3-8.0 [facility] Comment on above: Performed By: #### C MP #### [facility] [address] [place] [address] Sodium [Moles/Vol] 136 mmol/L Normal 135-144 [facility] Comment on above: Performed By: #### C MP #### [facility] [address] [place] [address] Urea nitrogen [Mass/Vol] 12 mg/dL Normal 6-20 [facility] Comment on above: Performed By: #### C MP #### [facility] [address] [place] [address] Albumin [Mass/Vol] 4.3 g/dL 3.5 - 4.6 g/dL [place] ALP [Catalytic activity/Vol] 73 U/L 35 - 104 U/L [place] ALT [Catalytic activity/Vol] 28 U/L 0 - 41 U/L [place] Anion gap [Moles/Vol] 12 mmol/L [place] AST [Catalytic activity/Vol] 37 U/L 0 - 40 U/L [place] Bilirubin Ql (U) 0.7 mg/dL 0.2 - 0.7 mg/dL [place] Calcium [Mass/Vol] 9.3 mg/dL 8.5 - 9.9 mg/dL [place] Chloride [Moles/Vol] 98 mmol/L [place] CO2 [Moles/Vol] 26 mmol/L [place] Creatinine [Mass/Vol] 1.02 mg/dL 0.7 - 1.2 mg/dL [place] GFR >60.0 >60 [place] Comment on above: >60 mL/min/1.73m2 EG FR, calc. for ages 18 and older using the MDRD formula (not corrected for weight), is valid for stable renal function. GFR Non- >60.0 >60 [place] Comment on above: >60 mL/min/1.73m2 EG FR, calc. for ages 18 and older using the MDRD formula (not corrected for weight), is valid for stable renal function. Globulin (S) [Mass/Vol] 3.2 g/dL 2.3 - 3.5 g/dL [place] Glucose [Mass/Vol] 100 mg/dL High 70 - 99 mg/dL [place], [place] Interpretation and review of laboratory results Abnormal [place] Potassium [Moles/Vol] 4.3 mmol/L [place] Protein [Mass/Vol] 7.5 g/dL 6.3 - 8 g/dL [place] Sodium [Moles/Vol] 136 mmol/L [place] Urea nitrogen [Mass/Vol] 12 mg/dL 6 - 20 mg/dL [place] Vital Signs Date Time Vital Sign Value Performing Clinician Fidel castro 12-14-2022 01:13-0400 Diastolic blood pressure 86 mm[Hg] [facility] 12-14-2022 01:13-0400 Heart rate 78 /min [facility] 12-14-2022 01:13-0400 Respiratory rate 18 /min [facility] 12-14-2022 01:13-0400 SaO2% (BldA) [Mass fraction] 95 % Mukund [facility] 12-14-2022 01:13-0400 Systolic blood pressure 122 mm[Hg] Umkund [facility] 12-14-2022 00:30-0400 Body temperature 98.6 [degF] Mukund [facility] 12-14-2022 00:30-0400 Diastolic blood pressure 91 mm[Hg] Mukund [facility] 12-14-2022 00:30-0400 Heart rate 80 /min [facility] 12-14-2022 00:30-0400 Respiratory rate 16 /min Mukund [facility] 12-14-2022 00:30-0400 SaO2% (BldA) [Mass fraction] 99 % Mukund Hart [facility] 12-14-2022 00:30-0400 Systolic blood pressure 141 mm[Hg] Mukund Hart [facility] 05-05-2020 14:34-0500 Body Temperature 97.81 [degF] [facility] [place] 05-05-2020 14:34-0500 BP Diastolic 75 mm[Hg] [facility] [place] 05-05-2020 14:34-0500 BP Systolic 146 mm[Hg] [place] 05-05-2020 14:34-0500 Pulse (Heart Rate) 66 /min [facility] [place] 05-05-2020 14:34-0500 Pulse Oximetry 100 % [facility] [place] 05-05-2020 14:34-0500 Respiratory Rate 16 /min [facility] [place] 05-05-2020 12:40-0500 BMI (Body Mass Index) 33.51 kg/m2 Kellie [place] [facility] 05-05-2020 12:40-0500 Body weight 115.21 kg Kellie [place] 05-05-2020 12:40-0500 Height 185.4 cm [place] Encounters Encounter Date Encounter Type Care Provider Facility Start: 12-14-2022 End: 12-14-2022 Emergency department patient visit Mukund Hart [facility] Start: 07-09-2022 End: 07-09-2022 Emergency department patient visit JOHN VELAZCO MD Facility:[facility] Start: 08-05-2020 End: 08-06-2020 Patient encounter procedure NADYA THORNTON Facility: Start: 05-05-2020 End: 05-05-2020 Emergency department patient visit KELLIE MORENO [facility] Start: 05-05-2020 End: 05-05-2020 Emergency department patient visit Kellie Moreno Work Phone: [facility] ED Comment on above: Dehydration (Primary Dx) Procedures Date Procedure Procedure Detail Performing Clinician Start: 05-05-2020 Blood count complete auto&auto difrntl wbc Kellie Moreno Work Phone: Start: 05-05-2020 Comprehensive metabo lic panel Kellie Moreno Work Phone: Hand Mukund Hart Plan of Treatment Date Care Activity Detail Author Start: 03-05-2020 Influenza vaccination Flu vaccine (# 1) [place] Immunizations Immunization Date Immunization Notes Care Provider Ester blum 04-22-2012 tetanus toxoid, redu danny diphtheria toxoid, and acellular pertussis vaccine, adsorbed Mukund [facility] Comment on above: Result Comment: to l eft deltoid Payers Date Payer Category Payer Unknown [id number] 1990 Unknown [id number] 1958 Unknown [id number] Social History Date Type Detail Facility Start: 05-05-2020 Tobacco smoking stat us NHIS Heavy tobacco smoker [place] History of tobacco use Cigarette Smoker M [place] Start: 05-05-2020 Cigarettes smoked current (pack per day) - Reported [place] Start: 05-05-2020 Tobacco use and exposure Current use r [place] Start: 05-05-2020 Alcohol intake Current drinke r of alcohol (finding) [place] Sex Assigned At Not on file [place] Exposure to SARS-CoV -2 (event) Not sure [place] [facility] Comment on above: denies Tobacco smoking status No Smokin g Status Entered [facility] Sex Assigned At Male [facility] Functional Status Date Assessment Result Facility 12-14-2022 Functional Status N/A [facility] Progress note 04-17-2023 Note Date & Type Note Facility 04-17-2023 Note HNO ID: [id number] Author: Note, Interface Service: ? Author Type: ? Type: Progress Notes Filed: 04/17/2023 3:02 AM Note Text: Epic Scheduled Downtime: 04/17/2023 1:00:00 AM to 04/17/2023 1:28:00 AM [facility] Evaluation + Plan note 12-14-2022 Note Date & Type Note Facility 12-14-2022 Evaluation + Plan note Extrac jaycob from: Title:ED Note Author:Mukund Hart DO Date :12/14/22 Laceration of lower leg (S81 .819A: Laceration without foreign body, unspecified lower leg, initial encounter) 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 Do not usedisinfectants or antiseptics, such as [...] Follow these instructions at home: Medicines Take [id number] and prescription medicines only as told by [...] provider. Document Revised: 08/28/2021 Document Reviewed: 08/28/2021 [employer] Patient Education 2022 [employer]. Follow Up Care 12/14/2022 00:21:33 With:CHINA BOYKINGLES Address: [facility] [address] [address] Business (1) When:12/17/2022 [facility] Hospital course Narrative Note Date & Type Note Facility Hospital course Narrative No data available for this section [facility] Progress note Note Date & Type Note Facility Progress note No data available for this section [facility] Discharge Instructions * Attachments The following attachments cannot be sent through Care Everywhere. * Dehydration (Lao) documented in this encounter Assessments Diagnosis Dehydration [...] section and content) DATE CREATED AUTHOR 05/05/2020 [facility] DATE CREATED AUTHOR AUTHOR'S ORGANIZ ATION 08/07/2020 [facility] DATE CREATED AUTHOR AUTHOR'S ORGANIZ ATION 08/29/2021 [facility] DATE CREATED AUTHOR AUTHOR'S ORGANIZ ATION 11/17/2022 [facility] DATE CREATED AUTHOR AUTHOR'S ORGANIZ ATION 04/18/2023 [facility] FOR RECORDS PERTAINING TO PATIENTS WHO ARE [...] BE BASED ON THE PRIMARY CLINICAL RECORDS. [facility]. provides no warranty or guarantee of the accuracy or completeness of information in this document.
--- NOTE | 2024-09-24 03:14 | ED_ITS ---
HPI - Eye Problem General Chief complaint: Eye Problems Stated complaint: Eye Time Seen by Provider: 09/24/24 03:11 Source: patient Mode of arrival: walk-in Limitations: no limitations History of Present Illness HPI Narrative: presents with discomfort of both eyes. States yesterday got alcohol steam in his eyes. 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 now presents with burning of both eyes. Denies FB sensation or injury. No headache or nausea or fever Related Data Home Medications ?Medication ?Instructions ?Recorded ?Confirmed No Known Home Medications 07/11/23 07/11/23 Allergies Allergy/AdvReac Type Severity Reaction Status Date / Time No Known Drug Allergies Allergy Verified 09/24/24 03:05 Review of Systems ROS Status of ROS 10 or more systems reviewed and unremark able except as noted in history and below [facility] Social History Smoking status: Light tobacco smoker Little interest or pleasure in doing things: not at all Feeling down, depressed, or hopeless: not at all Exam Constitutional Vital Signs, click to edit/add: Last Vital Signs Temp 97.7 F 09/24/24 03:05 Pulse 66 09/24/24 03:05 Resp 18 09/24/24 03:05 BP 127/89 09/24/24 03:05 Pulse Ox 99 09/24/24 03:05 O2 Del Method Room Air 09/24/24 03:05 Common normals: no apparent distress, average body habitus, oriented x3, no limitations, healthy appearing, alert and well nourished [facility] Common normals: normocephalic and head/scalp atraumatic Eye Common normals: PERRL and EOMs intact bilaterally Other: photosensitive. bilat eyes injected. No chemosis or palpebral edema Respiratory Common normals: normal respiratory effort and no use of accessory muscles Cardio Common normals: regular rate, regular rhythm and S1 normal heart sound Extremity Common normals: normal to inspection and full ROM Neuro Common normals: oriented x3, CN's II-XII intact bilaterally, moves all extremities and no focal motor deficits Psych Appearance: grossly normal Course Vital Signs Vital signs: Vital Signs Temperature 97.7 F 09/24/24 03:05 Pulse Rate 66 09/24/24 03:05 Respiratory Rate 18 09/24/24 03:05 Blood Pressure 127/89 09/24/24 03:05 Pulse Oximetry 99 09/24/24 03:05 Oxygen Delivery Method Room Air 09/24/24 03:05 Temperature 97.7 F 09/24/24 03:05 Pulse Rate 66 09/24/24 03:05 Respiratory Rate 18 09/24/24 03:05 Blood Pressure 127/89 09/24/24 03:05 Pulse Oximetry 99 09/24/24 03:05 Oxygen Delivery Method Room Air 09/24/24 03:05 MDM - Eye Problem MDM Narrative Medical decision making narrative: presents with discomfort of both eyes. states he had alcohol steam get into his eyes. he later went to work. He was not welding but was around others who were. Now he presents with burning sensation of both eyes and photosensitivity. Tetracaine instilled into the eyes and this offered relief of the photosensitivity fluorescein instilled in the eye and there was no focal uptake. eye inspected and no FB seen. I suspect this conjunctivitis is most likely from exposure to welding. No welding band found on exam because the patient himself was not welding. 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 will plan to treat as welding burn for now and recommend close follow up note once his discomfort was relieved with tetracaine he felt his vision was normal Discharge Plan Discharge Chief Complaint: Eye Problems Clinical Impression: Conjunctivitis Patient Disposition: Home, Self-Care Prescriptions / Home Meds: No Action No Known Home Medications Print Language: Kazakh Instructions: Conjunctivitis (ED) Additional Instructions: instill 2 drops into both eyes every 2-3 hours while awake. have eyes rechecked in one day Referrals: Physician,Non-Staff, MD [Primary Care Provider] - 1 week
[2024-09-24] MEDS: TETRACAINE HCL 0.5% OP SOL 80 DROP/4 ML BOTTLE OP (03:25)
[2024-09-24] MEDS: FLUORESCEIN SODIUM 1 MG STRIP OP (03:25)
[2024-09-24] MEDS: HYDROCODONE/ACET 5-325 MG TABLET 2 TAB PO ×2 (03:39→03:40)
[2024-09-24] MEDS: TOBRAMYCIN 0.3% OP SOL 100 DROP/5 ML BOTTLE OP (03:40)
== END 2024-09-24 03:45 | disposition home or self-care (01) ==
PROVIDERS: Emergency Provider Internal Medicine
DX: H10.9 Unspecified conjunctivitis (principal); F17.200 Nicotine dependence, unspecified, uncomplicated
CPT/HCPCS: 99283